=== PATIENT | male | born 1950 | race Caucasian/White ===

== ENCOUNTER 2018-02-01 04:09 | Emergency (ER) | payer OTHER ==
[2018-02-01] MEDS ORDERED: NS 1,000 ML IV ONE ×2 (04:27→04:32)
[2018-02-01] MEDS ORDERED: HYDROmorphONE/DILAUDID 1 MG/ML INJ ONE (04:30)
[2018-02-01] MEDS ORDERED: HYDROmorphONE/DILAUDID 2 MG/ML INJ IVP ONE (04:31)
[2018-02-01] MEDS ORDERED: KETOROLAC 15 MG/1 ML SDV ONE (04:31)
[2018-02-01] MEDS ORDERED: KETOROLAC 15 MG/1 ML SDV IVP ONE (04:31)
[2018-02-01] MEDS ORDERED: LIDOCAINE 1% 160 MG in NS 100 ML IV ONE (04:32)
--- NOTE | 2018-02-01 04:35 | EDPHY ---
H & P Stated Complaint: L FLANK PAIN Time Seen by Provider: 02/01/18 04:30 HPI/ROS: HPI The patient presents with left-sided flank pain which began several days ago and is intermittent though getting progressively worse. It is a an achy pain which radiates toward his buttocks and leg. He says he has a difficult time finding a comfortable position. He does not have any numbness or tingling of his leg. He does not have any weakness that he reports. He does not have any changes in his bowel or bladder function. He has no difficulties urinating. He has not been drinking very much fluid lately and family member here suspects he is dehydrated. He also has been doing a lot of gardening lately and questions if this may be causing his pain.. REVIEW OF SYSTEMS Constitutional: No fever, no chills. Eyes: No discharge. ENT: No sore throat. Cardiovascular: No chest pain, no palpitations. Respiratory: No cough, no shortness of breath. Gastrointestinal: No abdominal pain, no vomiting. Genitourinary: No hematuria. Musculoskeletal: Left flank pain Skin: No rashes. Neurological: No headache. PMHx: Hypertension Soc Hx: Smokes cigarettes FHx: PHYSICAL General Appearance: Alert, uncomfortable appearing Eyes: Pupils equal and round no pallor or injection ENT, Mouth: Mucous membranes moist Respiratory: There are no retractions, lungs are clear to auscultation Cardiovascular: Regular rate and rhythm Gastrointestinal: Abdomen is soft and non-tender, no masses, bowel sounds normal Back: There is no midline tenderness, there is left flank tenderness and also tenderness overlying the sciatic notch Neurological: A&O, moves all extremities Skin: Warm and dry, no rashes Musculoskeletal: Neck is supple non tender Extremities: symmetrical, 5/5 strength in lower extremities which is symmetric Psychiatric: Patient is oriented X 3, there is no agitation Source: Patient Exam Limitations: No limitations - Personal History Current Tetanus Diphtheria and Acellular Pertussis (TDAP): Yes - Medical/Surgical History Hx Asthma: No Hx Chronic Respiratory Disease: No Hx Diabetes: No Hx Cardiac Disease: Yes Hx Renal Disease: No Hx Cirrhosis: No Hx Alcoholism: No Hx HIV/AIDS: No Hx Splenectomy or Spleen Trauma: No Other PMH: HX: HTN, R KNEE INJURY, R ARM FX, METAL BEHIND R EYE - Social History Smoking Status: Heavy smoker Constitutional: Initial Vital Signs Temperature (C) 36.5 C 02/01/18 04:13 Heart Rate 90 02/01/18 04:13 Respiratory Rate 16 02/01/18 04:13 Blood Pressure 183/108 H 02/01/18 04:13 O2 Sat (%) 91 L 02/01/18 04:13 O2 Delivery Mode Room Air Allergies/Adverse Reactions: penicillin V potassium [From Pen-Vee K] Allergy (Verified 01/15/12 22:46) Sulfa (Sulfonamide Antibiotics) Allergy (Verified 01/15/12 22:46) Medical Decision Making - Diagnostics Imaging Results: CT abdomen pelvis without contrast reveals constipation, no kidney stones or hydronephrosis are present, there is 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 Napier of Radiology. Imaging: Discussed imaging studies w/ call worker Radiologist, I viewed and interpreted images myself Differential Diagnosis: 67-year-old male with hypertension presents from home with progressive intermittent left-sided flank pain. On exam, he has tenderness throughout his left flank with no midline tenderness. His strength is full in his lower extremities. As he does not have any urinary symptoms. Differential diagnosis includes ureterolithiasis, pyelonephritis, AAA, musculoskeletal pain. In the emergency department, patient was given IV fluids, medication for pain. Labs were checked and did reveal elevated BUN and creatinine to suggest pre renal azotemia. CT scan was obtained and did not demonstrate any sign of kidney stone. He does have significant constipation which could be a part of his pain. He also has a DJD of his lumbar spine which could be related to his pain. The patient felt better after receiving medication. He was given 2 L of fluid given his dehydration. I have advised [facility] as he may benefit from physical therapy. I have instructed him to use ibuprofen and Tylenol for the pain. - Data Points Laboratory Results: Laboratory Results 02/01/18 04:30 02/01/18 04:30 02/01/18 02/01/18 02/01/18 07:00 04:30 04:30 WBC 7.26 10^3/uL 10^3/uL (3.80-9.50) RBC 4.38 10^6/uL L 10^6/uL (4.40-6.38) Hgb 12.9 g/dL L g/dL (13.7-17.5) Hct 38.6 % L % (40.0-51.0) MCV 88.1 fL fL (81.5-99.8) MCH 29.5 pg pg (27.9-34.1) MCHC 33.4 g/dL g/dL (32.4-36.7) RDW 13.1 % % (11.5-15.2) Plt Count 183 10^3/uL 10^3/uL (150-400) MPV 11.0 fL fL (8.7-11.7) Neut % (Auto) 57.8 % % (39.3-74.2) Lymph % (Auto) 28.5 % % (15.0-45.0) [place] % (Auto) 9.0 % % (4.5-13.0) Eos % (Auto) 4.3 % % (0.6-7.6) Baso % (Auto) 0.3 % % (0.3-1.7) Nucleat RBC Rel Count 0.0 % % (0.0-0.2) Absolute Neuts (auto) 4.20 10^3/uL 10^3/uL (1.70-6.50) Absolute Lymphs (auto) 2.07 10^3/uL 10^3/uL (1.00-3.00) Absolute Monos (auto) 0.65 10^3/uL 10^3/uL (0.30-0.80) Absolute Eos (auto) 0.31 10^3/uL 10^3/uL (0.03-0.40) Absolute Basos (auto) 0.02 10^3/uL 10^3/uL (0.02-0.10) Absolute Nucleated RBC 0.00 10^3/uL 10^3/uL (0-0.01) Immature Gran % 0.1 % % (0.0-1.1) Immature Gran # 0.01 10^3/uL 10^3/uL (0.00-0.10) Sodium 137 mEq/L mEq/L (135-145) Potassium 4.8 mEq/L mEq/L (3.3-5.0) Chloride 105 mEq/L mEq/L (97-110) Carbon Dioxide 26 mEq/l mEq/l (22-31) Anion Gap 6 mEq/L L mEq/L (8-16) BUN 42 mg/dL H mg/dL (7-23) Creatinine 1.5 mg/dL H mg/dL (0.7-1.3) Estimated GFR 47 Glucose 99 mg/dL mg/dL (70-100) Calcium 9.2 mg/dL mg/dL (8.5-10.4) Urine Color YELLOW Urine Appearance CLEAR Urine pH 5.0 (5.0-7.5) Ur Specific [place] 1.018 (1.002-1.030) Urine Protein NEGATIVE (NEGATIVE) Urine Ketones NEGATIVE (NEGATIVE) Urine Blood NEGATIVE (NEGATIVE) Urine Nitrate NEGATIVE (NEGATIVE) Urine Bilirubin NEGATIVE (NEGATIVE) Urine Urobilinogen NEGATIVE EU EU (0.2-1.0) Ur Leukocyte Esterase NEGATIVE (NEGATIVE) Urine RBC NONE SEEN /hpf /hpf (0-3) Urine WBC 1-3 /hpf /hpf (0-3) Ur Epithelial Cells NONE SEEN /lpf /lpf (NONE-1+) Urine Mucus TRACE /lpf /lpf (NONE-1+) Urine Glucose NEGATIVE (NEGATIVE) Medications Given: Discontinued Medications Hydromorphone HCl (Dilaudid) 1 mg IVP EDNOW ONE Stop: 02/01/18 04:32 Last Admin: 02/01/18 04:34 Dose: 1 mg Sodium Chloride (Ns) 1,000 mls @ 3,000 mls/hr IV ONCE ONE Stop: 02/01/18 04:46 Last Admin: 02/01/18 04:35 Dose: 1,000 mls Lidocaine HCl 160 mg/ Sodium (Chloride) 116 mls @ 600 mls/hr IV EDNOW ONE Stop: 02/01/18 04:43 Last Admin: 02/01/18 04:44 Dose: 116 mls Sodium Chloride (Ns) 1,000 mls @ 3,000 mls/hr IV EDNOW ONE Stop: 02/01/18 04:51 Last Admin: 02/01/18 04:44 Dose: 1,000 mls Ketorolac Tromethamine (Toradol) 15 mg IVP ONCE ONE Stop: 02/01/18 04:32 Last Admin: 02/01/18 04:34 Dose: 15 mg Departure - Departure Disposition: Home, Routine, Self-Care Clinical Impression: Lumbar radiculopathy, acute, Dehydration Constipation Qualifiers: Constipation type: unspecified constipation type Qualified Code(s): K59.00 - Constipation, unspecified Condition: Good Instructions: Lumbar Radiculopathy (ED), Flank Pain (ED) Additional Instructions: I recommend that you take ibuprofen 400 mg with acetaminophen 650 mg every 6 hr as needed for pain. Please [facility] the next 1- 2 days for further care. Please make sure to drink plenty of fluids as your blood work today showed that your probably dehydrated. Referrals: NONE *PRIMARY CARE P,. [Primary Care Provider] - As per Instructions
[2018-02-01 04:39] LABS: PLATELET COUNT 183 10^3/uL (150-400)
[2018-02-01 09:52] VITALS: BP 123/71
== END 2018-02-01 10:03 | disposition home or self-care (01) ==
DX: K59.00 Constipation, unspecified (principal); M54.16 Radiculopathy, lumbar region; E86.0 Dehydration; I10 Essential (primary) hypertension; F17.210 Nicotine dependence, cigarettes, uncomplicated
CPT/HCPCS: 96365; J1170; J1885

== ENCOUNTER 2018-04-10 01:43 | Inpatient (IN) | payer OTHER ==
[2018-04-10] MEDS ORDERED: NS 1,000 ML IV ONE (03:06)
[2018-04-10] MEDS ORDERED: HYDROmorphONE/DILAUDID 2 MG/ML INJ IVP ONE (03:06)
[2018-04-10 04:04] LABS: PLATELET COUNT 190 10^3/uL (150-400)
[2018-04-10 04:24] LABS: CREATINE KINASE 145 IU/L (0-224)
[2018-04-10] MEDS ORDERED: IOPAMIDOL (ISOVUE-300) 100 ML BTL ONE (04:31)
--- NOTE | 2018-04-10 04:42 | EDPHY ---
H & P Stated Complaint: L leg/hip pain, "i couldnt even sit up" Time Seen by Provider: 04/10/18 02:53 HPI/ROS: HPI The patient presents with left hip pain which started yesterday and has been constant ever since. As the pain started slowly, is severe, has caused him to be bed-bound for the last day. He did not fall or injure his hip. He has no prior hip injuries. his pain is worse with any range of motion of his hip. He describes the pain as sharp. He has not had a fever. He has not had recent increased physical activity. He does use drugs and muscles heroin into his right arm though does not shoot into his leg. He denies any current back pain. REVIEW OF SYSTEMS Constitutional: No fever, no chills. Eyes: No discharge. ENT: No sore throat. Cardiovascular: No chest pain, no palpitations. Respiratory: No cough, no shortness of breath. Gastrointestinal: No abdominal pain, no vomiting. Genitourinary: No hematuria. Musculoskeletal: No back pain. Skin: No rashes. Neurological: No headache. PMHx: Hypertension, injection drug use Soc Hx: Lives in a house with multiple roommates, here with a friend PHYSICAL General Appearance: Alert, uncomfortable appearing Eyes: Pupils equal and round no pallor or injection ENT, Mouth: Mucous membranes moist Respiratory: There are no retractions, lungs are clear to auscultation Cardiovascular: Regular rate and rhythm Gastrointestinal: Abdomen is soft and non-tender, no masses, bowel sounds normal Neurological: A&O, moves all extremities Skin: Warm and dry, no rashes Musculoskeletal: Neck is supple non tender Extremities: Left hip is held in extension, any flexion causes severe pain, there is tenderness to the anterior hip joint, sensation is intact throughout leg Psychiatric: Patient is oriented X 3, there is no agitation Source: Patient Exam Limitations: No limitations - Personal History Current Tetanus Diphtheria and Acellular Pertussis (TDAP): No - Medical/Surgical History Hx Asthma: No Hx Chronic Respiratory Disease: No Hx Diabetes: No Hx Cardiac Disease: Yes Hx Renal Disease: No Hx Cirrhosis: No Hx Alcoholism: No Hx HIV/AIDS: No Hx Splenectomy or Spleen Trauma: No Other PMH: HX: HTN, R KNEE INJURY, R ARM FX, METAL BEHIND R EYE,[place], cocaine abuse - Social History Smoking Status: Heavy smoker Constitutional: Initial Vital Signs Temperature (C) 36.7 C 04/10/18 01:46 Heart Rate 85 04/10/18 01:46 Respiratory Rate 19 04/10/18 01:46 Blood Pressure 176/120 H 04/10/18 01:46 O2 Sat (%) 96 04/10/18 01:46 O2 Delivery Mode Room Air Allergies/Adverse Reactions: penicillin V potassium [From Pen-Vee K] Allergy (Verified 04/10/18 01:44) Sulfa (Sulfonamide Antibiotics) Allergy (Verified 04/10/18 01:44) Home Medications: Medication Instructions Recorded NK [No Known Home Meds] 03/08/18 Medical Decision Making - Diagnostics Imaging Results: X-ray left hip two view shows no fracture, no dislocation, interpreted by me, radiology interpretation pending CT scan pelvis with IV contrast demonstrates possible iliopsoas myositis, DJD of his hip joint with no large effusion, discussed Dr. Johnson of Radiology. Imaging: Discussed imaging studies w/ call box wirer Radiologist, I viewed and interpreted images myself Differential Diagnosis: This is a 67-year-old male with history of hypertension and injection drug use who presents with severe left hip pain which is atraumatic. He has limited range of motion secondary to pain though no signs of infection of his skin. Differential diagnosis includes occult fracture, deep space infection. Patient was given medication for pain. Labs were checked which did reveal a mild leukocytosis and elevated inflammatory markers. X-rays were unremarkable. Patient had ongoing pain thus decision was made to pursue CT scan which showed DJD and possible ileus psoas myositis. I re-evaluated the patient and he is unable to range his hip beyond about 30 secondary to pain. He is unable to bear weight on this. It is unclear if myositis could be causing all of his symptoms, however given that he cannot walk I do not feel he is safe for discharge home. I have consulted with Dr. Morelos of the hospitalist service who will admit the patient. He agrees that we should hold antibiotics given the diagnostic uncertainty at this time. - Data Points Laboratory Results: Laboratory Results 04/10/18 03:50 04/10/18 03:50 04/10/18 04/10/18 04/10/18 03:50 03:50 03:50 WBC 10.63 10^3/uL H 10^3/uL (3.80-9.50) RBC 4.68 10^6/uL 10^6/uL (4.40-6.38) Hgb 13.6 g/dL L g/dL (13.7-17.5) Hct 40.1 % % (40.0-51.0) MCV 85.7 fL fL (81.5-99.8) MCH 29.1 pg pg (27.9-34.1) MCHC 33.9 g/dL g/dL (32.4-36.7) RDW 13.3 % % (11.5-15.2) Plt Count 190 10^3/uL 10^3/uL (150-400) MPV 11.4 fL fL (8.7-11.7) Neut % (Auto) 76.3 % H % (39.3-74.2) Lymph % (Auto) 12.7 % L % (15.0-45.0) [place] % (Auto) 9.8 % % (4.5-13.0) Eos % (Auto) 0.8 % % (0.6-7.6) Baso % (Auto) 0.2 % L % (0.3-1.7) Nucleat RBC Rel Count 0.0 % % (0.0-0.2) Absolute Neuts (auto) 8.12 10^3/uL H 10^3/uL (1.70-6.50) Absolute Lymphs (auto) 1.35 10^3/uL 10^3/uL (1.00-3.00) Absolute Monos (auto) 1.04 10^3/uL H 10^3/uL (0.30-0.80) Absolute Eos (auto) 0.08 10^3/uL 10^3/uL (0.03-0.40) Absolute Basos (auto) 0.02 10^3/uL 10^3/uL (0.02-0.10) Absolute Nucleated RBC 0.00 10^3/uL 10^3/uL (0-0.01) Immature Gran % 0.2 % % (0.0-1.1) Immature Gran # 0.02 10^3/uL 10^3/uL (0.00-0.10) ESR 47 MM/HR H MM/HR (0-20) Sodium 136 mEq/L mEq/L (135-145) Potassium 4.0 mEq/L mEq/L (3.3-5.0) Chloride 99 mEq/L mEq/L (97-110) Carbon Dioxide 27 mEq/l mEq/l (22-31) Anion Gap 10 mEq/L mEq/L (8-16) BUN 30 mg/dL H mg/dL (7-23) Creatinine 0.9 mg/dL mg/dL (0.7-1.3) Estimated GFR > 60 Glucose 105 mg/dL H mg/dL (70-100) Calcium 9.1 mg/dL mg/dL (8.5-10.4) Total Bilirubin 0.9 mg/dL mg/dL (0.1-1.4) AST 31 IU/L IU/L (17-59) ALT 42 IU/L IU/L (21-72) Alkaline Phosphatase 139 IU/L H IU/L (38-126) Creatine Kinase 145 IU/L IU/L (0-224) C-Reactive Protein 31.0 mg/L H mg/L (<10.0) Total Protein 7.7 g/dL g/dL (6.3-8.2) Albumin 4.0 g/dL g/dL (3.5-5.0) Urine Color PALE YELLOW Urine Appearance CLEAR Urine pH 7.0 (5.0-7.5) Ur Specific [place] 1.012 (1.002-1.030) Urine Protein NEGATIVE (NEGATIVE) Urine Ketones NEGATIVE (NEGATIVE) Urine Blood NEGATIVE (NEGATIVE) Urine Nitrate NEGATIVE (NEGATIVE) Urine Bilirubin NEGATIVE (NEGATIVE) Urine Urobilinogen NEGATIVE EU EU (0.2-1.0) Ur Leukocyte Esterase NEGATIVE (NEGATIVE) Urine Glucose NEGATIVE (NEGATIVE) Urine Opiates Screen NON-NEGATIVE H (NEGATIVE) Urine Barbiturates NEGATIVE (NEGATIVE) Ur Phencyclidine Scrn NEGATIVE (NEGATIVE) Ur Amphetamine Screen NON-NEGATIVE H (NEGATIVE) U Benzodiazepines Scrn NEGATIVE (NEGATIVE) Urine Cocaine Screen NEGATIVE (NEGATIVE) U Marijuana (THC) Screen NON-NEGATIVE H (NEGATIVE) Medications Given: Discontinued Medications Hydromorphone HCl (Dilaudid) 1 mg IVP EDNOW ONE Stop: 04/10/18 03:07 Last Admin: 04/10/18 04:05 Dose: 1 mg Sodium Chloride (Ns) 1,000 mls @ 0 mls/hr IV EDNOW ONE; Wide Open PRN Reason: Protocol Stop: 04/10/18 03:07 Last Admin: 04/10/18 04:06 Dose: 1,000 mls Departure - Departure Disposition: [facility] Inpatient Acute Clinical Impression: Left hip pain, IVDU (intravenous drug user) HTN (hypertension) Qualifiers: Hypertension type: essential hypertension Qualified Code(s): I10 - Essential ( primary) hypertension Condition: Fair Referrals: NONE *PRIMARY CARE P,. [Primary Care Provider] - As per Instructions
[2018-04-10] MEDS ORDERED: ONDANSETRON DISINTEGRATING 4 MG TAB PO PRN (05:32)
[2018-04-10] MEDS ORDERED: ONDANSETRON 4 MG/2 ML VIAL IVP PRN (05:32)
--- NOTE | 2018-04-10 06:04 | PDGENHP ---
History and Physical - Chief Complaint L hip pain - History of Present Illness 67 yo M w/ HTN and polysubstance abuse presents with L hip pain. Patient tells me he noted acute onset, severe L hip pain yesterday while lying in bed. The pain has been so severe he has been able to get up or walk. When asked where the pain is he points near his L groin. The pain is improved by lying on his L side. He also has been experiencing R ankle pain, which started at the same time as the left hip pain. He has felt cold but denies clear fevers. He denies other localizing symptoms of infection. He has not had similar pain in the past. He denies hx of autoimmune disease. He abuses multiple drugs including heroin, which he injects intramuscularly, and smokes meth and speed. He says he has been smoking very strong speed lately that will knock him out for a day or two at the time. Case discussed with ED physician Dr. Brooks, records reviewed in EMR. History Information - Allergies/Home Medication List Allergies/Adverse Reactions: penicillin V potassium [From Pen-Vee K] Allergy (Verified 04/10/18 01:44) Sulfa (Sulfonamide Antibiotics) Allergy (Verified 04/10/18 01:44) Home Medications: NK [No Known Home Meds] 03/08/18 [Last Taken Unknown] I have personally reviewed and updated: family history, medical history - Past Medical History hypertension - Surgical History Additional surgical history: Knee surgery - Family History Additional family history: Asked, denies - Social History Smoking Status: Heavy smoker Review of Systems Review of Systems: ROS: 10pt was reviewed & negative except for what was stated in HPI & below Physical Exam Physical Exam: Temp Pulse Resp BP Pulse Ox 36.7 C 85 19 176/120 H 96 04/10/18 01:46 04/10/18 01:46 04/10/18 01:46 04/10/18 01:46 04/10/18 01:46 Constitutional: uncomfortable, unkempt Eyes: PERRL, anicteric sclera Ears, Nose, Mouth, Throat: moist mucous membranes, no oral mucosal ulcers Cardiovascular: regular rate and rhythym, systolic murmur Respiratory: no respiratory distress, clear to auscultation Gastrointestinal: normoactive bowel sounds, soft, non-tender abdomen Skin: warm, erythema (Lateral R ankle with swelling and warmth) Musculoskeletal: pain with ROM (L hip), muscular tenderness (L hip) Neurologic: AAOx3, CN II-XII Intact Psychiatric: interacting appropriately, not anxious Lab Data & Imaging Review 04/10/18 03:50 04/10/18 03:50 WBC 10.63 10^3/uL (3.80-9.50) H 04/10/18 03:50 RBC 4.68 10^6/uL (4.40-6.38) 04/10/18 03:50 Hgb 13.6 g/dL (13.7-17.5) L 04/10/18 03:50 Hct 40.1 % (40.0-51.0) 04/10/18 03:50 MCV 85.7 fL (81.5-99.8) 04/10/18 03:50 MCH 29.1 pg (27.9-34.1) 04/10/18 03:50 MCHC 33.9 g/dL (32.4-36.7) 04/10/18 03:50 RDW 13.3 % (11.5-15.2) 04/10/18 03:50 Plt Count 190 10^3/uL (150-400) 04/10/18 03:50 MPV 11.4 fL (8.7-11.7) 04/10/18 03:50 Neut % (Auto) 76.3 % (39.3-74.2) H 04/10/18 03:50 Lymph % (Auto) 12.7 % (15.0-45.0) L 04/10/18 03:50 [place] % (Auto) 9.8 % (4.5-13.0) 04/10/18 03:50 Eos % (Auto) 0.8 % (0.6-7.6) 04/10/18 03:50 Baso % (Auto) 0.2 % (0.3-1.7) L 04/10/18 03:50 Nucleat RBC Rel Count 0.0 % (0.0-0.2) 04/10/18 03:50 Absolute Neuts (auto) 8.12 10^3/uL (1.70-6.50) H 04/10/18 03:50 Absolute Lymphs (auto) 1.35 10^3/uL (1.00-3.00) 04/10/18 03:50 Absolute Monos (auto) 1.04 10^3/uL (0.30-0.80) H 04/10/18 03:50 Absolute Eos (auto) 0.08 10^3/uL (0.03-0.40) 04/10/18 03:50 Absolute Basos (auto) 0.02 10^3/uL (0.02-0.10) 04/10/18 03:50 Absolute Nucleated RBC 0.00 10^3/uL (0-0.01) 04/10/18 03:50 Immature Gran % 0.2 % (0.0-1.1) 04/10/18 03:50 Immature Gran # 0.02 10^3/uL (0.00-0.10) 04/10/18 03:50 ESR 47 MM/HR (0-20) H 04/10/18 03:50 Sodium 136 mEq/L (135-145) 04/10/18 03:50 Potassium 4.0 mEq/L (3.3-5.0) 04/10/18 03:50 Chloride 99 mEq/L (97-110) 04/10/18 03:50 Carbon Dioxide 27 mEq/l (22-31) 04/10/18 03:50 Anion Gap 10 mEq/L (8-16) 04/10/18 03:50 BUN 30 mg/dL (7-23) H 04/10/18 03:50 Creatinine 0.9 mg/dL (0.7-1.3) 04/10/18 03:50 Estimated GFR > 60 04/10/18 03:50 Glucose 105 mg/dL (70-100) H 04/10/18 03:50 Calcium 9.1 mg/dL (8.5-10.4) 04/10/18 03:50 Total Bilirubin 0.9 mg/dL (0.1-1.4) 04/10/18 03:50 AST 31 IU/L (17-59) 04/10/18 03:50 ALT 42 IU/L (21-72) 04/10/18 03:50 Alkaline Phosphatase 139 IU/L (38-126) H 04/10/18 03:50 Creatine Kinase 145 IU/L (0-224) 04/10/18 03:50 C-Reactive Protein 31.0 mg/L (<10.0) H 04/10/18 03:50 Total Protein 7.7 g/dL (6.3-8.2) 04/10/18 03:50 Albumin 4.0 g/dL (3.5-5.0) 04/10/18 03:50 Urine Color PALE YELLOW 04/10/18 03:50 Urine Appearance CLEAR 04/10/18 03:50 Urine pH 7.0 (5.0-7.5) 04/10/18 03:50 Ur Specific [place] 1.012 (1.002-1.030) 04/10/18 03:50 Urine Protein NEGATIVE (NEGATIVE) 04/10/18 03:50 Urine Ketones NEGATIVE (NEGATIVE) 04/10/18 03:50 Urine Blood NEGATIVE (NEGATIVE) 04/10/18 03:50 Urine Nitrate NEGATIVE (NEGATIVE) 04/10/18 03:50 Urine Bilirubin NEGATIVE (NEGATIVE) 04/10/18 03:50 Urine Urobilinogen NEGATIVE EU (0.2-1.0) 04/10/18 03:50 Ur Leukocyte Esterase NEGATIVE (NEGATIVE) 04/10/18 03:50 Urine Glucose NEGATIVE (NEGATIVE) 04/10/18 03:50 Urine Opiates Screen NON-NEGATIVE (NEGATIVE) H 04/10/18 03:50 Urine Barbiturates NEGATIVE (NEGATIVE) 04/10/18 03:50 Ur Phencyclidine Scrn NEGATIVE (NEGATIVE) 04/10/18 03:50 Ur Amphetamine Screen NON-NEGATIVE (NEGATIVE) H 04/10/18 03:50 U Benzodiazepines Scrn NEGATIVE (NEGATIVE) 04/10/18 03:50 Urine Cocaine Screen NEGATIVE (NEGATIVE) 04/10/18 03:50 U Marijuana (THC) Screen NON-NEGATIVE (NEGATIVE) H 04/10/18 03:50 Imaging Review: Pelvis CT Prelim: degen change, no effusion, iliopsoas enlarged on left but no def abcess, ? myositis Assessment & Plan Assessment: 67 yo M w/ HTN and polysubstance abuse presents with L hip pain and R ankle swelling. Plan: 1. L hip pain - Acute onset on day prior to admission while at rest; denies trauma or injury, although the speed/meth he has been smoking lately will make him "out of it" for a day or two so this is still possible. Differential is broad currently including vascular, infectious, and autoimmune considerations. CT prelim read revealed iliopsoas enlargement suggestive of possible myositis. Inflammatory markers are only mildly elevated and CK is normal, so this seems less likely. Noting he has R ankle pain/swelling that started at the same time, embolic phenomena is possible noting hx of IVDU. - MRI ordered for further evaluation of L hip - TTE and blood cultures to rule out endocarditis - Will observe off antibiotics for now, low threshold to start broad coverage 2. R ankle pain/swelling - Unclear etiology, patient noticed this at the same time as the L hip pain. - XR ordered - TTE as above 3. Polysubstance abuse - Patient admits to use of heroin, speed, meth, and possibly other substances. 4. HTN - Needs med reconciliation, normotensive currently. Diet - Regular Code - Full Ppx - LMWH Dispo - Admit under observation status
[2018-04-10] MEDS: oxyCODONE IR 5 MG TAB PO PRN ×4 (09:48→22:39)
[2018-04-10] MEDS: ENOXAPARIN 40 MG/0.4 ML SYR SC SCH (09:49)
--- NOTE | 2018-04-10 13:13 | ECHO ---
[email or web address] [address] [address] Main: [phone] Fax: Transthoracic Echocardiogram Name: KIA NIEVES MR#: [id number] Study Date: 04/10/2018 Study Time: 09:26 AM Date of : 1950 Age: 67 year(s) Height: 175.3 cm (69 in.) Weight: 79.38 kg (175 lb.) BSA: 1.95 m2 Gender: Male Examination: Echo Indication: IV Drug Use, R/O Vegetation Image Quality: Contrast: Requested by: Darren Fischer BP: 143 mmHg/88 mmHg Heart Rate: Rhythm: Normal sinus rhythm with ectopy Indication: IV Drug Use, R/O Vegetation Procedure Staff Budget Record Clerk: Donell Valle RDCS Reading Physician: Raymond Crabtree MD Requesting Provider: Conclusions: Normal study Measurements: Chambers Valvular Assessment AV/MV Valvular Assessment TV/PV Normal Normal Normal Name Value Range Name Value Range Name Value Range Ao Francine (MM): 3.7 cm (2.2 cm-3.7 AV Vmax: 1.37 m/s (1 m/s-1.7 TR Vmax: 2.21 mm/s ( - ) cm) m/s) TR PGmax: 20 mmHg ( - ) IVSd (2D): 0.8 cm (0.6 cm-1.1 AV maxP mmHg ( - ) syst. PAP: 25 mmHg ( - ) cm) LVOT Vmax: 0.85 m/s (0.7 m/s-1.1 PV Vmax: 1.05 m/s (0.6 m/s-0.9 LVDd (2D): 5.0 cm (4.2 cm-5.9 m/s) m/s) cm) AR (PHT): 916 ms ( - ) PV PGmax: 4 mmHg ( - ) LVDs (2D): 3.3 cm (2.1 cm-4 MV E Vmax: 0.60 m/s ( - ) cm) MV A Vmax: 0.83 m/s ( - ) LVPWd (2D): 0.9 cm (0.6 cm-1 MV E/A: 0.72 ( - ) cm) LVEF (2D): 64 (>=54 %) Continued Measurements: Chambers Valvular Assessment AV/MV Valvular Assessment TV/PV Name Value Name Value Name Value LADs Lon.1 cm MV E' Septal: 0.07 m/s CVP (est.): 5 mmHg LA Area: 19.3 cm2 MV E/E' Septal: 8.50 AR Vmax: 3.64 cm/s Findings: Left Ventricle: Normal size left ventricle. No LV hypertrophy. Normal global systolic LV function. EF is 64 %. No Patient: KIA NIEVES Study Date: 04/10/2018 Page 1 of 2 09:26 AM regional wall motion abnormality. Diastolic dysfunction is present. . Right Ventricle: Normal size right ventricle. Normal RV function. Left Atrium: The left atrium is normal in size. Right Atrium: The right atrium is normal in size. Mitral Valve: The mitral valve is normal in appearance and function. There is no significant mitral valve regurgitation. Aortic Valve: The aortic valve is tri-leaflet. Mild aortic valve regurgitation is present. Tricuspid Valve: The tricuspid valve is normal in appearance and function. Trivial to mild tricuspid valve regurgitation. The pulmonary artery pressure is normal. Pulmonic Valve: The pulmonic valve is normal in appearance and function. Aorta: The aorta is normal. Pericardium: No pericardial effusion. (No Signature Object) Patient: KIA NIEVES Study Date: 04/10/2018 Page 2 of 2 09:26 AM [id number]
--- NOTE | 2018-04-10 14:36 | ASMTCMCOM ---
CM Note CM Note Notes: Pt presents to hospital w/L hip pain. He admits to current polysubstance abuse (Meth,Heroin,Speed). DC needs unclear, CM w/f. DC Plan: TBD Date Signed: 04/10/2018 02:35 PM Electronically Signed By:Leeanne Boyd RN
--- NOTE | 2018-04-10 15:23 | HOSPPROG ---
Hospitalist Progress Note Assessment/Plan: HOSPITALIST EVENING ROUNDS NOTE ON ADMISSION DAY Pt states He has been getting by with very low doses of narcotic so far here no change in pain, unable to move L hip due to pain No fevers thru day, vitals stable Exam: awake, very KAIBAB skin warm dry, no distress markedly tender in ileopsoas below inguinal ligament and also there is groin tenderness just above the ligament, though no definite abd tenderness. Severe pain with attempt at active hip flexion on L, much anticipation of pain with passive flexion but I can flex to 90; pain with passive hip abduction at 60 degr ESR 47 CRP 31 No growth in cultures yet today but < 12 hrs I have reviewed CT images, has some enlargement of L ileopsoas but no acute skeletol issues Cultures of blood pending MRI has not been done yet - attempted but pt too anxious With pain and tenderness at ileopsoas and pain with attempted use of it, along with high ESR and CRP, I am highly suspicious about possible myositis there. Lack of fever does not rule out infection. No fx on CT, doubt avasc necrosis but could consider that. DIAGNOSES: * acute ileopsoas pain, tenderness with high ESR and CRP, CT suggesting possible myositis * ongoing Injected heroin and meth * potential for withdrawal from these * ankle pain: xray with old healed fxs and arthritis, unremarkable exam * risk of HIV * Hx of HTN * current tobacco abuse PLANS: * will begin empiric iv abx * follow cultures * retry mri with ativan, pain med * HIV test ordered * nicotine patch * clonidine and muscle relaxors ordered w potential for withdrawal; continue current order for oxycodone for pain which is doing well so far - may not last * prn orders for ativan, antidiarrheal, > 35 mins bedside and care coordination in addition to the time spent today by Dr Fagan on admission activities Objective: Vital Signs Temp Pulse Resp BP Pulse Ox 36.9 C 69 16 153/101 H 89 L 04/10/18 11:49 04/10/18 11:49 04/10/18 11:49 04/10/18 11:49 04/10/18 11:49 04/09/18 04/10/18 04/11/18 06:59 06:59 06:59 Output Total 700 Balance -700 ICD10 Worksheet Patient Problems: Problems Problem Status Onset HTN (hypertension) Acute IVDU (intravenous drug user) Acute Left hip pain Acute
[2018-04-10] MEDS: CYCLOBENZAPRINE 10 MG TAB PO SCH ×2 (15:47→21:06)
[2018-04-10] MEDS ORDERED: DIPHENOXYLATE/ATROPINE LOMOTIL 1 TAB PO PRN (16:07)
[2018-04-10] MEDS: NICOTINE 21 MG/24 HR PATCH TD SCH (17:51)
[2018-04-10] MEDS ORDERED: NS 1,000 ML IV SCH (18:15)
[2018-04-10] MEDS: VANCOMYCIN HCL/NORMAL SALINE 250 ML IV SCH (18:30)
[2018-04-10] MEDS: LORazepam 1 MG TAB PO PRN (21:06)
[2018-04-11] MEDS: LORazepam 1 MG TAB PO PRN ×5 (01:30→23:37)
[2018-04-11] MEDS: oxyCODONE IR 5 MG TAB PO PRN ×4 (02:57→23:37)
[2018-04-11] MEDS: VANCOMYCIN HCL/NORMAL SALINE 250 ML IV SCH (06:09)
[2018-04-11] MEDS: CYCLOBENZAPRINE 10 MG TAB PO SCH ×3 (08:55→21:10)
[2018-04-11] MEDS: NICOTINE 21 MG/24 HR PATCH TD SCH (08:57)
[2018-04-11] MEDS: ENOXAPARIN 40 MG/0.4 ML SYR SC SCH (08:58)
--- NOTE | 2018-04-11 10:28 | HOSPPROG ---
Hospitalist Progress Note Assessment/Plan: 67-year-old with severe left hip pain. CT shows 67-year-old IV drug user is admitted with left hip pain. Initial CT scan does show some iliopsoas swelling, no significant white count or fever and blood cultures are negative. Discussed with Orthopedics # left hip pain with CT remarkable for possible myositis. * Discontinue antibiotics and monitor since blood cultures negative * MRI with sedation * Appreciate Orthopedics input * needs additional midnight stay for monitoring and possible abscess in patient with IVDU at high risk. # ongoing IV drug use. Patient typically injects into his upper extremities and not his lower extremities. Will watch for withdrawal * Follow-up HIV test # hypertension, monitor and treat if needed # ankle pain with negative x-ray. Subjective: Patient new to me and chart reviewed. Complains of left hip pain slightly better this morning. Also complains of some right ankle pain. Very difficult to arouse this morning Objective: Vital Signs Temp Pulse Resp BP Pulse Ox 36.9 C 70 16 149/90 H 99 04/11/18 08:00 04/11/18 08:00 04/11/18 08:00 04/11/18 09:03 04/11/18 08:00 04/10/18 04/11/18 04/12/18 05:59 05:59 05:59 Intake Total 350 Output Total 1475 700 Balance -1125 -700 - Physical Exam Constitutional: chronically ill appearing, uncomfortable Eyes: PERRL Ears, Nose, Mouth, Throat: moist mucous membranes Cardiovascular: regular rate and rhythym Respiratory: no respiratory distress, clear to auscultation Gastrointestinal: normoactive bowel sounds, soft, non-tender abdomen Genitourinary: no bladder fullness Skin: warm Musculoskeletal: normal joint ROM (Left hip), no joint effusions, pain with ROM (Pain with active flexion against resistance of his left leg. Tenderness over his left groin area) Neurologic: AAOx3 Psychiatric: interacting appropriately ICD10 Worksheet Patient Problems: Problems Problem Status Onset Left hip pain Acute IVDU (intravenous drug user) Acute HTN (hypertension) Acute
--- NOTE | 2018-04-11 11:12 | GCON ---
DATE OF CONSULTATION: 04/11/2018 CHIEF COMPLAINT: Left hip and groin pain. HISTORY OF PRESENT ILLNESS: This is a 67-year-old male who is an IV drug user and polysubstance abus er. He noted onset of left hip pain about 3 days ago. It became more severe on the next day and par ticularly the next day. It was so severe he came to the hospital. He said he really had difficulty walking and bearing weight on this. He also had been experiencing some right ankle pain that started about the same time. At this point, in talking to him today, both have improved. He denies falls, trauma, or any other things. He says he last used IV drugs about 4 days ago. He has been [facility] and worked up for this. PAST MEDICAL HISTORY: Hypertension. SURGICAL HISTORY: Knee surgery. FAMILY HISTORY: Denies any. SOCIAL HISTORY: Heavy smoker, polysubstance abuser, IV drug user. HOME MEDICATIONS: Not known. ALLERGIES: Penicillin, sulfa drugs, potassium. REVIEW OF SYSTEMS: 10-point review of systems negative other than above. PHYSICAL EXAMINATION: GENERAL: He is oriented. He is mostly alert. He is communicative. Does not appear in any distress. VITAL SIGNS: Stable. He is afebrile. HEENT: His eyes are equal and reac tive. His mouth shows moist mucous membranes. NECK: Supple. CARDIOVASCULAR: Regular rate and rhy thm. RESPIRATORY: Good inspiratory effort. GI: Soft. Bowel sounds. SKIN: Intact. MUSCULOSKELE NEGAR: Arms: He moves well and no areas of tenderness, trauma, or other concerns. He has good 5/5 st rength and sensation in the left lower extremity. He points to pain right in his groin. I can range his hip well with internal external rotation and flexion with minimal pain. He relates minimal palp ation anteriorly. No tenderness to palpation laterally. Attempted hip flexion shows 3/5 hip flexion strength with significant pain at attempted hip flexion. He has good 5/5 strength and no pain with hip abduction, hip adduction, hip extension. He has good strength laterally. No gross tenderness. On the right side, he has some swelling about his right ankle. He is able to move this, however. X-rays x-ray of the right ankle showed old healing fractures, no acute fracture, and some soft tissue swelling. X-rays and CT of his hip concern for myositis in his iliopsoas. No bony abnormality seen and no evidence of any fracture. PLAN: Regarding the left hip, I do not think he has a fracture bony injury. I think his iliopsoas m uscles is inflamed possibly with a myositis. It is also possible he could have an abscess in this ar ea. I think an MRI would be more diagnostic for this. An MRI has been ordered. He did not tolerate the first one, and one will be done with contrast with him with some sedation. The right ankle pain and swelling, will see if this resolves over time. I do not see any acute injury to this. I will f ollow him along in the hospital, but I do not recommend any surgical intervention at this point. /[id number]/MODL
[2018-04-11] MEDS: HYDROmorphONE/DILAUDID 1 MG/ML INJ IVP PRN (14:20)
--- NOTE | 2018-04-11 14:26 | PDMN ---
Medical Necessity Medical necessity: MCG: GRG Musculoskeletal disease - pt with hip pain- poss. iliopsoas myositis req further monitoring and IV abx tx. - pt is IV drug abuse- ongoing , further monitoring of W/D needed. anticipate > 2 MN status changed to INPT 04/10/18 @ 18:06
[2018-04-11] MEDS: traZODone 100 MG TAB PO SCH (21:10)
[2018-04-12] MEDS: ACETAMINOPHEN 325 MG TAB PO PRN (01:29)
[2018-04-12] MEDS: oxyCODONE IR 5 MG TAB PO PRN ×4 (02:49→21:28)
[2018-04-12] MEDS: LORazepam 1 MG TAB PO PRN ×2 (04:20→12:08)
[2018-04-12 05:22] LABS: PLATELET COUNT 172 10^3/uL (150-400)
--- NOTE | 2018-04-12 08:43 | SOAPPROG ---
WHIT Progress Note Assessment/Plan: Assessment: L iliopsoas myosisitis R ankle swelling Plan: His L hip and illiopsoas seem to be improving. He can do a straight leg raise and has improved hip flexion strength R ankle minimally swollen and seems to be improving He has been unable to tolerate an MRI. This would still be helpful diagnostically 04/12/18 08:40 Subjective: less pain in left hip and R ankle Objective: Vital Signs Temp Pulse Resp BP Pulse Ox 36.8 C 74 16 146/95 H 94 04/12/18 07:22 04/12/18 07:22 04/12/18 07:22 04/12/18 07:22 04/12/18 07:22 Laboratory Results 04/12/18 05:05 04/12/18 05:05 04/11/18 04/12/18 04/13/18 05:59 05:59 05:59 Intake Total 500 Output Total 275 2600 Balance -275 -2100 Left hip improved flexion strength 5-/5 able to do straigth leg raise R ankle minimal swelling non tender today ICD10 Worksheet Patient Problems: Problems Problem Status Onset HTN (hypertension) Acute IVDU (intravenous drug user) Acute Left hip pain Acute
[2018-04-12] MEDS: PRAZOSIN HCL 1 MG CAP PO SCH (09:13)
[2018-04-12] MEDS: ENOXAPARIN 40 MG/0.4 ML SYR SC SCH (09:13)
[2018-04-12] MEDS: CYCLOBENZAPRINE 10 MG TAB PO SCH ×3 (09:14→21:28)
[2018-04-12] MEDS: NICOTINE 21 MG/24 HR PATCH TD SCH (09:16)
--- NOTE | 2018-04-12 12:32 | HOSPPROG ---
Hospitalist Progress Note Assessment/Plan: 67-year-old IV drug user is admitted with left hip pain. Initial CT scan does show some iliopsoas swelling, no significant white count or fever and blood cultures are negative. Discussed with Orthopedics. Continues to be lethargic all of the time. # left hip pain with CT remarkable for possible myositis. * Discontinue antibiotics and monitor since blood cultures negative * MRI with sedation * Appreciate Orthopedics input * needs additional midnight stay for monitoring and possible abscess in patient with IVDU at high risk. # ongoing IV drug use. Patient typically injects into his upper extremities and not his lower extremities. Will watch for withdrawal * Follow-up HIV test # hypertension, monitor and treat if needed # ankle pain with negative x-ray. Subjective: complains of my cold stethescope. pain in left groin to palpation, per ortho, strength better. Objective: Vital Signs Temp Pulse Resp BP Pulse Ox 37.1 C 82 16 123/82 H 93 04/12/18 10:54 04/12/18 10:54 04/12/18 10:54 04/12/18 10:54 04/12/18 10:54 Laboratory Results 04/12/18 05:05 04/12/18 05:05 04/11/18 04/12/18 04/13/18 05:59 05:59 05:59 Intake Total 500 Output Total 275 2600 Balance -275 -2100 - Physical Exam Constitutional: chronically ill appearing, other (arousable but won't open eyes) Cardiovascular: regular rate and rhythym Respiratory: no respiratory distress Gastrointestinal: normoactive bowel sounds Musculoskeletal: other (tenderness left groin) ICD10 Worksheet Patient Problems: Problems Problem Status Onset Left hip pain Acute IVDU (intravenous drug user) Acute HTN (hypertension) Acute
[2018-04-12] MEDS ORDERED: chlordiazePOXIDE 25 MG CAP PO ONE (15:15)
[2018-04-12] MEDS ORDERED: FLUMAZENIL 0.5 MG/5 ML MDV IVP PRN (15:42)
--- NOTE | 2018-04-12 16:12 | ASMTCMCOM ---
CM Note CM Note Notes: Chart reviewed. Will have repeat MRI tomorrow with sedation. CM to follow. Will need need resources prior to discharge. CM to follow for needs. Plan: TBD Date Signed: 04/12/2018 04:12 PM Electronically Signed By:Vicki Shipley RN
[2018-04-12] MEDS: THIAMINE HCL 500 MG in NS 100 ML IV SCH (16:55)
[2018-04-12] MEDS: LORazepam 2 MG/ML INJ IVP PRN (19:51)
[2018-04-12] MEDS: traZODone 100 MG TAB PO SCH (21:28)
[2018-04-12] MEDS: chlordiazePOXIDE 25 MG CAP PO SCH (21:28)
[2018-04-13] MEDS: LORazepam 2 MG/ML INJ IVP PRN (00:15)
[2018-04-13] MEDS ORDERED: chlordiazePOXIDE 25 MG CAP PO SCH (09:24)
--- NOTE | 2018-04-13 09:24 | HOSPPROG ---
Hospitalist Progress Note Assessment/Plan: 67-year-old IV drug user is admitted with left hip pain. Initial CT scan does show some iliopsoas swelling, no significant white count or fever and blood cultures are negative. Discussed with Orthopedics. Continues to be lethargic all of the time. # left hip pain with CT remarkable for possible myositis. * Discontinue antibiotics and monitor since blood cultures negative * MRI with sedation to be done today. * Appreciate Orthopedics input * needs additional midnight stay for monitoring and possible abscess in patient with IVDU at high risk. * continue to follow CBC # ongoing IV drug use. Patient typically injects into his upper extremities and not his lower extremities. Will watch for withdrawal # Agitation, responds to librium. Pt denies ETOH use, but active IVDU. * Continue librium , will decrease dose # hypertension, monitor and treat if needed # ankle pain with negative x-ray. Subjective: arousable, poor eye contact, pt not very interested in his care. Objective: Vital Signs Temp Pulse Resp BP Pulse Ox 37.0 C 78 14 135/84 H 94 04/13/18 08:00 04/13/18 08:00 04/13/18 08:00 04/13/18 08:00 04/13/18 08:00 Laboratory Results 04/12/18 05:05 04/12/18 05:05 04/12/18 04/13/18 04/14/18 05:59 05:59 05:59 Intake Total 500 100 Output Total 2600 Balance -2100 100 - Physical Exam Constitutional: no apparent distress, unkempt Eyes: PERRL Ears, Nose, Mouth, Throat: moist mucous membranes Cardiovascular: regular rate and rhythym Respiratory: no respiratory distress, clear to auscultation Gastrointestinal: soft, non-tender abdomen Genitourinary: No elizondo in urethra Skin: normal color Musculoskeletal: muscular tenderness (Left groin) Neurologic: other (Unable to assess MS due to patient flat affect and disinterest in care.) Psychiatric: flat affect, agitated (in afternoons) ICD10 Worksheet Patient Problems: Problems Problem Status Onset HTN (hypertension) Acute IVDU (intravenous drug user) Acute Left hip pain Acute
[2018-04-13] MEDS: PRAZOSIN HCL 1 MG CAP PO SCH (10:18)
[2018-04-13] MEDS: CYCLOBENZAPRINE 10 MG TAB PO SCH ×3 (10:18→22:46)
[2018-04-13] MEDS: ENOXAPARIN 40 MG/0.4 ML SYR SC SCH (10:19)
[2018-04-13] MEDS: THIAMINE HCL 500 MG in NS 100 ML IV SCH (10:19)
[2018-04-13] MEDS: FOLIC ACID 1 MG TAB PO SCH (10:19)
[2018-04-13] MEDS: chlordiazePOXIDE 25 MG CAP PO SCH ×4 (10:29→22:45)
[2018-04-13] MEDS: NICOTINE 21 MG/24 HR PATCH TD SCH (11:14)
[2018-04-13 13:17] LABS: PLATELET COUNT 180 10^3/uL (150-400)
--- NOTE | 2018-04-13 16:14 | PDANEPAE ---
ANE History of Present Illness pt with hip pain, here for MRI ANE Past Medical History - Cardiovascular History Hx Hypertension: No Hx Arrhythmias: No Hx Chest Pain: No Hx Coronary Artery / Peripheral Vascular Disease: No Hx CHF / Valvular Disease: No - Pulmonary History Hx Oxygen in Use at Home: No Hx Sleep Apnea: No - Endocrine History Hx Diabetes: No - Chronic Pain History Chronic Pain: No ANE Review of Systems Review of Systems: - Exercise capacity Exercise capacity: >=4 METS ANE Patient History - Allergies Allergies/Adverse Reactions: penicillin V potassium [From Pen-Vee K] Allergy (Verified 04/10/18 01:44) Sulfa (Sulfonamide Antibiotics) Allergy (Verified 04/10/18 01:44) - Home Medications Home Medications: Prazosin HCl [Minipress 1mg (*)] 1 mg PO DAILY 04/10/18 [Last Taken Unknown] amLODIPine BESYLATE [Norvasc 10 mg (*)] 10 mg PO DAILY 04/10/18 [Last Taken Unknown] traZODone [traZODONE 100MG (*)] 100 mg PO HS 04/10/18 [Last Taken Unknown] - NPO status NPO Status: no food or drink >8 hours - Anes Hx Anes Hx: no prior problems - Smoking Hx Smoking Status: Heavy smoker - Alcohol Use Alcohol Use: None - Family Anes Hx Family Anes Hx: none ANE Labs/Vital Signs - Labs Result Diagrams: 04/13/18 12:54 04/12/18 05:05 - Vital Signs Blood Pressure: 139/82 Heart Rate: 74 Respiratory Rate: 20 O2 Sat (%): 94 Height: 175.26 cm Weight: 79.379 kg ANE Physical Exam - Airway Neck exam: FROM Mallampati Score: Class 2 Mouth exam: poor dentition, dentures - Pulmonary Pulmonary: no respiratory distress, clear to auscultation - Cardiovascular Cardiovascular: regular rate and rhythym, no murmur, rub, or gallop - ASA Status ASA Status: III ANE Anesthesia Plan Anesthesia Plan: GA with mask Total IV Anesthesia: Yes
[2018-04-13] MEDS ORDERED: PROPOFOL/EMULSION 500 MG/50 ML BOTTLE IV ONE ×3 (16:21→17:01)
[2018-04-13] MEDS ORDERED: GADOBUTROL 10 ML VIAL IVP ONE (17:37)
[2018-04-13] MEDS ORDERED: ACETAMINOPHEN 500 MG TAB PO PRN (18:13)
[2018-04-13] MEDS ORDERED: ONDANSETRON 4 MG/2 ML VIAL IVP PRN (18:13)
[2018-04-13] MEDS ORDERED: NALOXONE HCL 0.4 MG/ML INJ IVP PRN (18:13)
--- NOTE | 2018-04-13 18:15 | POSTANESTH ---
Post Anesthetic Evaluation Cardiovascular Status: Normal, Stable, Similar to Pre-Op Cond Respiratory Status: Normal, Stable, Similar to Pre-op Cond. Level of Consciousness/Mental Status: Can Participate in Eval, Alert and Oriented Pain Control: Adequate, Prn Tx Ordered Nausea/Vomiting Control: Adequate, Prn Tx Ordered Complications Possibly Related to Anesthesia: None Noted
[2018-04-13] MEDS: traZODone 100 MG TAB PO SCH (22:45)
[2018-04-14] MEDS: PRAZOSIN HCL 1 MG CAP PO SCH (08:26)
[2018-04-14] MEDS: CYCLOBENZAPRINE 10 MG TAB PO SCH ×3 (08:26→21:08)
[2018-04-14] MEDS: FOLIC ACID 1 MG TAB PO SCH (08:26)
[2018-04-14] MEDS: THIAMINE HCL 500 MG in NS 100 ML IV SCH (08:26)
[2018-04-14] MEDS: chlordiazePOXIDE 25 MG CAP PO SCH (08:26)
[2018-04-14] MEDS: NICOTINE 21 MG/24 HR PATCH TD SCH (08:26)
[2018-04-14] MEDS: ENOXAPARIN 40 MG/0.4 ML SYR SC SCH (08:27)
[2018-04-14] MEDS: ACETAMINOPHEN 325 MG TAB PO PRN (08:36)
[2018-04-14 08:49] LABS: PLATELET COUNT 226 10^3/uL (150-400)
[2018-04-14] MEDS ORDERED: VANCOMYCIN HCL/NORMAL SALINE 250 ML IV ONE (11:29)
[2018-04-14] MEDS ORDERED: NS 1,000 ML IV ONE (11:29)
[2018-04-14] MEDS ORDERED: NS 1,000 ML IV SCH (11:30)
--- NOTE | 2018-04-14 11:58 | HOSPPROG ---
Hospitalist Progress Note Assessment/Plan: 67-year-old IV drug user is admitted with left hip pain. Initial CT scan does show some iliopsoas swelling, no significant white count or fever and blood cultures are negative. MRI showed myositis and possibly small abscess in the iliopsoas. However today with no antibiotic treatment in a few days his symptoms are actually significantly improved and he is much more alert than he has been over the past 2 days however his friends visited him prior to my visit and the nurse and I have a high suspicion that they gave him drugs thru his IV since his IV blew after their visit and his hypoxia and low BP that started after their visit resolved with narcan. Security searched his room for drug and did not find any. # left hip pain with CT remarkable for possible myositis. * MRI shows possibly small abscess. 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 # ongoing IV drug use. Patient typically injects into his upper extremities and not his lower extremities. # delirium: This has cleared over the last 24 hr he was on scheduled Librium yesterday and much improved today so will discontinue his sedatives and use p.r.n. Only. Monitor his mental status I suspect he may have had some withdrawal contributing although he denies any alcohol use possibly withdrawal to some of his other polysubstance abuse. He cleared significantly after his friends visited ? IVDU today. # hypotension this morning, will give IV fluids, typically he is hypertensive I wonder if this is related to his sedatives that were given yesterday and anesthesia done for the MRI yesterday. I doubt sepsis given his minimal elevated white count, improving mental status and the fact he has been afebrile. RN called and stated that prior to drop in BP and iv infiltrating, the patient had 2 friends come into his room and suspects that they gave him something thru his IV will give a dose of narcan now. # ankle pain with negative x-ray. Disposition: await ID recs, doubt we can aspirated abscess due to size and will need to treat with antibiotics. Subjective: Patient more alert today and appropriate. Decreased pain and tenderness in his left groin able to put a little bit a weight and lift his legs. Objective: Vital Signs Temp Pulse Resp BP Pulse Ox 36.9 C 84 14 84/55 L 88 L 04/14/18 11:18 04/14/18 11:18 04/14/18 07:15 04/14/18 11:18 04/14/18 11:18 Laboratory Results 04/14/18 08:00 04/14/18 08:00 04/13/18 04/14/18 04/15/18 05:59 05:59 05:59 Intake Total 100 1475 Output Total 600 250 Balance 100 875 -250 - Physical Exam Constitutional: not in pain, unkempt Eyes: PERRL Ears, Nose, Mouth, Throat: moist mucous membranes Cardiovascular: regular rate and rhythym Respiratory: no respiratory distress, clear to auscultation Gastrointestinal: normoactive bowel sounds, soft, non-tender abdomen Skin: warm, normal color Musculoskeletal: muscular tenderness (Left iliopsoas are low much less tender than yesterday), No joint tenderness Neurologic: other (Alert more appropriate and answering questions well) Psychiatric: interacting appropriately ICD10 Worksheet Patient Problems: Problems Problem Status Onset Left hip pain Acute IVDU (intravenous drug user) Acute HTN (hypertension) Acute
[2018-04-14] MEDS ORDERED: NALOXONE HCL 0.4 MG/ML INJ ONE (12:43)
[2018-04-14] MEDS ORDERED: NALOXONE HCL 0.4 MG/ML INJ IVP ONE (12:43)
[2018-04-14 14:48] LABS: HIV TYPE 1 AND 2 NEGATIVE (NEGATIVE)
--- NOTE | 2018-04-14 15:29 | ASMTCMCOM ---
CM Note CM Note Notes: Spoke with patient's nurse, Shawn. Patient had visitors today and when they left patient respiratory status and BP became unstable. After consultation with Dr. Car, it was determined there was a high probability the patient's visitors put drugs in his IV line. Patient was given Narcan and respiratory status and BP stabilized. Patient is not allowed any visitors for the remainder of his stay here in the hospital. See nurse's notes dated 04-14-2018 by Shawn for a more detailed account. CM was going to give resources today but patient is sedated by whatever was placed in his IV line. CM to follow up tomorrow. Date Signed: 04/14/2018 03:28 PM Electronically Signed By:Lashaun Allen LCSW
--- NOTE | 2018-04-14 20:46 | GCON ---
INFECTIOUS DISEASE CONSULTATION. DATE OF CONSULTATION: 04/14/2018 REFERRING PHYSICIAN: Jaelyn Car MD REASON FOR CONSULTATION: Myositis of left iliopsoas muscle. HISTORY OF PRESENT ILLNESS: The patient is a 67-year-old male with a past medical history of injecti on drug use, who I am asked to see in consultation for left-sided iliopsoas myositis with concern for infectious etiology. The patient was admitted to the hospital on 04/10/2018, with complaint of left hip pain. The patient had developed acute onset of left hip pain which was so severe he could not g et out of bed or walk. The patient's pain was localized to left inguinal region. The patient also n oted concomitant right ankle pain. He did not complain of any fever or chills. He notes last inject ion drug use was the day prior to hospital admission. He primarily injects into his upper extremity muscles. The patient notes that his left hip pain has slowly improved, but has persistent pain in hi s right popliteal fossa and over the left ankle as well as the right 5th finger. Evaluation has incl uded an MRI of the left hip, which showed edema in the iliopsoas muscle with a 7 x 2 mm fluid collect ion posteriorly; there also appears to be fluid within the iliopsoas bursa and a small joint effusion . No intramuscular abscess was identified. X-ray of the right ankle showed degenerative changes. B lood cultures were obtained at the time of presentation, which have showed no growth. The patient rausch s had a leukocytosis present since time of hospital admission. He has not had any demonstrable fever since hospital admission. He has been observed off antibiotics until earlier today at which point h e was initiated on vancomycin based on hypotension and increasing white blood cell count. The patien t does not note significant abdominal pain, but notes diarrhea x1 today with foul odor. Given the ab ove findings, I am now asked to assist in his ongoing management. PAST MEDICAL HISTORY: MRSA hand infection in 2010, injection drug use, hypertension. PAST SURGICAL HISTORY: Right knee surgery. CURRENT MEDICATIONS: Vancomycin 1 g IV q.12 hours, Librium 25 mg as needed, Catapres 0.1 mg p.o. twi ce daily, Flexeril 10 mg p.o. three times daily, Lomotil as needed for diarrhea, Lovenox 40 mg subcut aneous daily, folate 1 mg p.o. daily, NicoDerm CQ 21 mg patch daily, prazosin 1 mg p.o. daily, vitami n B1 100 mg p.o. daily, trazodone 100 mg p.o. at bedtime. ALLERGIES: Penicillin and sulfonamide with unclear reactions as child. SOCIAL HISTORY: Patient smokes a few cigarettes per day. Denies alcohol use. Uses injection heroin and smokes methamphetamine. The patient notes last sexual activity was 8 months ago with his girlfr sohail who is currently in intermediate. FAMILY HISTORY: The patient is unable to provide family history today. REVIEW OF SYSTEMS: Outside that noted in the HPI, the remainder of 10-system review is unremarkable. PHYSICAL EXAMINATION: VITAL SIGNS: Temperature 37.3, heart rate 73, respiratory rate 18, blood pres sure 134/79, oxygen saturation 91% on room air. GENERAL: Patient is chronically ill appearing with distress when he moves. HEENT: There is no scleral icterus, conjunctival injection, or conjunctival petechiae. Oropharynx shows moist mucous membranes. Patient is edentulous. There is no nasal disc harge. There is no tenderness over the sinuses. NECK: Supple without palpable lymphadenopathy or t hyromegaly. CHEST: Clear to auscultation bilaterally without adventitious sounds. The respiratory effort is normal. CARDIOVASCULAR: Regular rate and rhythm with a 2/6 systolic murmur heard at the l eft and right upper sternal borders. No gallops or rubs noted. ABDOMEN: Soft, nontender, nondisten ded. There is no palpable organomegaly. Bowel sounds are present. MUSCULOSKELETAL: There is minim al pain with rotation of the left hip. There is no pain over the left hip joint. There is pain in t he right popliteal fossa without erythema. There is pain with mild edema over the dorsal aspect of t he left foot with slight erythema being present. There is significant tenderness over the PIP joint of the right index finger without overlying erythema. SKIN: Multiple tattoos present. There are no stigmata of endocarditis. There is onycholysis of several nails. NEUROLOGIC: Patient is alert and interacts appropriately with examiner. Cranial nerves 2 through 12 are grossly intact. Sensation i s grossly intact. Muscle tone and bulk are normal. LYMPHATICS: No cervical or supraclavicular node s. Bilateral shotty inguinal nodes present. LABORATORY DATA: White blood cell count 12.6, hematocrit 40.0, platelets 226, neutrophils 78%. Seru m creatinine is 1.1. Urine drug screen shows non-negativity for opiates, amphetamines, and THC. HIV antibody is negative. Urinalysis is negative. Blood cultures x2 on 04/10/2018 no growth, blood cul tures x2, 04/14/2018 pending. Imaging as outlined above with MRI being reviewed and interpreted by me with Radiology today. Echocardiogram shows mild aortic valve regurgitation and trivial to mild tricuspid valve regurgitatio n. IMPRESSION: 1. Left-sided iliopsoas inflammatory changes most compatible with myositis: Given the presence of t hese findings in the setting of injection drug use, this is concerning for bacterial seeding with Sta phylococcus aureus being most likely. He is at significant risk for methicillin resistant Staphyloco ccus aureus. Less likely, this would be noninfectious in etiology based on clinical presentation. T here is no dominant fluid collection that would be amenable to percutaneous aspiration for further di agnosis. 2. Polyarthralgia: See above discussion as Staphylococcus aureus could also present in this fashion . Disseminated in gonococcal would be also of consideration. 3. Injection drug use: Will need screening for hepatitis B and C. RECOMMENDATIONS: 1. Agree with empiric vancomycin 1 g IV q.12 hours to see if this alleviates symptomatology. 2. Follow up repeat blood cultures as available. 3. Urine for GC and chlamydia. 4. Hepatitis B and C serologies. 5. Follow clinical response over time with antibiotic therapy and further modification of treatment based on clinical course. Thank you for this consultation. We will continue to follow the patient with you. /[id number]/MODL
[2018-04-14] MEDS: traZODone 100 MG TAB PO SCH (21:07)
[2018-04-14] MEDS: LORazepam 1 MG TAB PO PRN (21:07)
[2018-04-14] MEDS: VANCOMYCIN HCL/NORMAL SALINE 250 ML IV SCH (23:43)
[2018-04-15] MEDS: chlordiazePOXIDE 25 MG CAP PO PRN (00:32)
[2018-04-15] MEDS: oxyCODONE IR 5 MG TAB PO PRN ×6 (01:50→22:31)
[2018-04-15] MEDS: LORazepam 1 MG TAB PO PRN ×3 (02:17→22:29)
[2018-04-15] MEDS: FOLIC ACID 1 MG TAB PO SCH (09:00)
[2018-04-15] MEDS: THIAMINE HCL 100 MG TAB PO SCH (09:25)
[2018-04-15] MEDS: NICOTINE 21 MG/24 HR PATCH TD SCH (09:26)
[2018-04-15] MEDS: CYCLOBENZAPRINE 10 MG TAB PO SCH ×3 (09:26→20:57)
[2018-04-15] MEDS: PRAZOSIN HCL 1 MG CAP PO SCH (09:26)
[2018-04-15] MEDS: ENOXAPARIN 40 MG/0.4 ML SYR SC SCH (09:26)
--- NOTE | 2018-04-15 09:50 | HOSPPROG ---
Hospitalist Progress Note Assessment/Plan: 67-year-old IV drug user is admitted with left hip pain. Initial CT scan does show some iliopsoas swelling, no significant white count or fever and blood cultures are negative. MRI showed myositis and possibly small abscess in the iliopsoas. # left hip pain with CT remarkable for possible myositis. * MRI shows possibly small abscess. * ID is following, for now treating with IV Vancomycin # Right Ankle pain. Negative X-Ray. If continues with no improvement, may need to get an MRI # ongoing IV drug use. Patient typically injects into his upper extremities and not his lower extremities. # delirium: resolved # hypotension, resolved Plan: -stop IVF -monitor BP -Still with no fever. His left hip pain is now fully resolved. Etiology remains unclear. -His main c/o is right ankle pain. His exam is difficult as he says all of his ankle and lower extremity are painful. He does appear to have point tenderness in the lateral aspect. ROM is limited. May need an MRI R ankle pending clinical course -Repeat CRP. Subjective: right ankle pain. denies left hip or thigh pain Objective: Vital Signs Temp Pulse Resp BP Pulse Ox 36.6 C 74 19 168/104 H 91 L 04/15/18 07:21 04/15/18 07:21 04/15/18 07:21 04/15/18 09:25 04/15/18 07:21 Laboratory Results 04/14/18 08:00 04/14/18 12:10 04/14/18 04/15/18 04/16/18 05:59 05:59 05:59 Intake Total 1475 250 Output Total 600 450 Balance 875 -200 - Physical Exam Constitutional: no apparent distress Eyes: PERRL Ears, Nose, Mouth, Throat: moist mucous membranes, hearing normal Cardiovascular: regular rate and rhythym, No edema Respiratory: no respiratory distress, no rales or rhonchi Gastrointestinal: normoactive bowel sounds, soft, non-tender abdomen Skin: warm Neurologic: AAOx3 Psychiatric: interacting appropriately, not anxious, not encephalopathic Lymph, Heme, Immunologic: No petechiae ICD10 Worksheet Patient Problems: Problems Problem Status Onset HTN (hypertension) Acute IVDU (intravenous drug user) Acute Left hip pain Acute
[2018-04-15 11:34] LABS: GC AMPLIFICATION GENPROBE NEGATIVE (NEGATIVE)
[2018-04-15] MEDS: VANCOMYCIN HCL/NORMAL SALINE 250 ML IV SCH ×2 (12:00→23:37)
[2018-04-15 13:12] LABS: HEPATITIS B CORE AB TOTAL REACTIVE (NEGATIVE); HEPATITIS B SURFACE ANTIGEN NEGATIVE (NEGATIVE); HEPATITIS C ANTIBODY TOTAL REACTIVE (NEGATIVE)
[2018-04-15 14:35] LABS: HEPATITIS B CORE AB IGM NEGATIVE (NEGATIVE)
--- NOTE | 2018-04-15 19:15 | PCMIDPN ---
Assessment/Plan: Assessment/Plan: * Left ileo psoas myositis: Most likely this is infectious in etiology given active injection drug use with Staphylococcus aureus being most likely pathogen. Blood cultures have been negative however. Marked elevation in CRP present. Also has right 5th digit tenderness and now recurrent right ankle pain with resolution of left ankle pain. Will obtain uric acid level. Will proceed with CT scan of right ankle without contrast to assess for effusion which if present would need to be tapped. Difficult to proceed with MRI as he require general anesthesia for left hip MRI. Urine GC and Chlamydia studies have been negative. Continue empiric vancomycin and monitor clinical course over time. Vancomycin level will be obtained prior to his next dose this p.m.. 04/15/18 19:12 04/15/18 19:14 Subjective: Patient complains of right ankle pain. Denies left hip pain. Objective: Vital Signs Temp Pulse Resp BP Pulse Ox 36.9 C 80 15 141/80 H 93 04/15/18 11:35 04/15/18 15:49 04/15/18 15:49 04/15/18 15:49 04/15/18 15:49 Laboratory Results 04/14/18 08:00 04/15/18 15:25 04/14/18 04/15/18 04/16/18 05:59 05:59 05:59 Intake Total 1475 250 700 Output Total 304 406 8196 Balance 875 -200 -2000 ESR 47 MM/HR (0-20) H 04/10/18 03:50 C-Reactive Protein 214.7 mg/L (<10.0) H 04/15/18 05:05 Vancomycin # 2 Blood cultures x2 04/10/2018 no growth Blood cultures x2 04/14/2018 pending - Physical Exam General Appearance: non-toxic, other (Somnolent but arousable) EENT: No scleral icterus, No thrush, No conjunctival petechiae Respiratory: lungs clear, No respiratory distress Cardiac/Chest: regular rate, rhythm, No systolic murmur Extremities: inflammation (Left hip without irritability or pain with rotation; right ankle exquisitely tender to palpation and rotation without overlying erythema or warmth; right 5th finger painful over PIP joint; left ankle pain resolved) Abdomen: non-tender, No distended Skin: No rash, No embolic lesions ICD10 Worksheet Patient Problems: Problems Problem Status Onset HTN (hypertension) Acute IVDU (intravenous drug user) Acute Left hip pain Acute
[2018-04-15] MEDS: traZODone 100 MG TAB PO SCH (20:57)
[2018-04-16] MEDS: oxyCODONE IR 5 MG TAB PO PRN ×5 (01:36→20:02)
[2018-04-16] MEDS: NICOTINE 21 MG/24 HR PATCH TD SCH (08:04)
[2018-04-16] MEDS: THIAMINE HCL 100 MG TAB PO SCH (08:06)
[2018-04-16] MEDS: ENOXAPARIN 40 MG/0.4 ML SYR SC SCH (08:06)
[2018-04-16] MEDS: PRAZOSIN HCL 1 MG CAP PO SCH (08:07)
[2018-04-16] MEDS: FOLIC ACID 1 MG TAB PO SCH (08:07)
[2018-04-16] MEDS: CYCLOBENZAPRINE 10 MG TAB PO SCH ×2 (08:07→15:31)
[2018-04-16] MEDS: chlordiazePOXIDE 25 MG CAP PO PRN (08:07)
--- NOTE | 2018-04-16 10:10 | PCMIDPN ---
Assessment/Plan: 1. Left ileo psoas myositis with developing abscess: Patient continues to have severe pain, and today is really unable to flex or internally or externally rotate his hip. Will add cefepime for gram-negative coverage given that he is at risk for this as an intravenous drug user. Continue vancomycin, but increase to 1.25 g IV q.12 hours and recheck trough. Will also obtain blood culture for fungi, as he is at risk for Magalys in the setting of intravenous drug use as well. 2. Right ankle and right knee pain: Reviewed CT scan with Dr. Johnson. No drainable focus or effusion. Continue antibiotic therapy as outlined above. GC chlamydia screening of the urine is negative. Uric acid normal, although this does not exclude gout. Etiology unclear at this point in time. This is fairly sudden onset, so doubt related to underlying hepatitis-C or hepatitis-B. Check syphilis IgG for completeness. This would be an unusual manifestation. Of note, the CT scan went up to the knee but did not include the knee. If he continues to have severe discomfort here with a possible ballotable effusion, will scan this area as well. 3. Hepatitis-C antibody positive, hepatitis-B core antibody positive: Check hepatitis C quantitative RNA and hepatitis B quantitative DNA. Also check hepatitis a total antibody to ensure immunity given probable underlying hepatitis-C. Patient is HIV negative. Over 35 min spent with this patient today. 04/16/18 10:12 Subjective: Patient continues to have severe pain in his right ankle and right knee. The pain in his right 5th digit has improved. He states although the pain in his left hip is better compared with admission, it is still very severe and he is unable to really move his hip today. Objective: Vancomycin 1 g IV q.12 hours day 1 T-max 37.3 degrees Vital Signs Temp Pulse Resp BP Pulse Ox 37.3 C 79 16 155/104 H 97 04/16/18 08:00 04/16/18 08:00 04/16/18 08:00 04/16/18 08:00 04/16/18 08:00 Laboratory Results 04/14/18 08:00 04/15/18 15:25 04/15/18 04/16/18 04/17/18 05:59 05:59 05:59 Intake Total 250 700 Output Total 450 4000 Balance -200 -3300 ESR 47 MM/HR (0-20) H 04/10/18 03:50 C-Reactive Protein 214.7 mg/L (<10.0) H 04/15/18 05:05 Blood cultures, 2 sets have been negative TTE negative Laboratory Tests 04/14/18 04/15/18 04/15/18 12:22 02:10 15:25 Uric Acid 4.5 Vancomycin Trough Hep B Core Total Ab REACTIVE H Hep B Core IgM Ab NEGATIVE Hepatitis C Antibody REACTIVE H HIV 1&2 Antibody NEGATIVE 04/15/18 23:16 Uric Acid Vancomycin Trough 7.7 Hep B Core Total Ab Hep B Core IgM Ab Hepatitis C Antibody HIV 1&2 Antibody - Physical Exam General Appearance: other (Disheveled, laying on left side, no apparent distress ) EENT: pharynx normal, No thrush Respiratory: lungs clear Cardiac/Chest: regular rate, rhythm, No systolic murmur Extremities: other (The patient's right knee is not swollen, although he may have a small ballotable effusion in this area medially. The right ankle is without obvious abnormality although it is exquisitely painful with flexion and extension. The patient's right 5th digit is without obvious abnormality. He is able to flex and extend his finger today. Patient's left hip is without obvious abnormality on physical exam. He does have exquisite pain when he flexes and extends his hip and it with internal and external rotation the patient is screaming.) Abdomen: non-tender, soft Skin: other (Multiple tattoos), No rash, No embolic lesions ICD10 Worksheet Patient Problems: Problems Problem Status Onset HTN (hypertension) Acute IVDU (intravenous drug user) Acute Left hip pain Acute
[2018-04-16] MEDS ORDERED: ceFAZolin 2 GM/DEXTROSE 100 ML IV SCH (10:30)
[2018-04-16] MEDS: ACETAMINOPHEN 325 MG TAB PO PRN ×2 (10:35→15:30)
[2018-04-16] MEDS: CEFEPIME HCL 2 GM in NS 100 ML IV SCH ×2 (10:35→23:07)
[2018-04-16] MEDS: VANCOMYCIN 1.25 GM in NS 250 ML IV SCH ×2 (10:36→23:48)
[2018-04-16] MEDS: LORazepam 1 MG TAB PO PRN (11:17)
[2018-04-16] MEDS ORDERED: PIPERACILLIN/TAZO 3.375 GM/DEX 50 ML IV SCH (12:00)
--- NOTE | 2018-04-16 13:12 | HOSPPROG ---
Hospitalist Progress Note Assessment/Plan: 67-year-old IV drug user is admitted with left hip pain. Initial CT scan does show some iliopsoas swelling, no significant white count or fever and blood cultures are negative. MRI showed myositis and possibly small abscess in the iliopsoas. # left hip pain with CT remarkable for possible myositis. * MRI shows possibly small abscess. * ID is following * Cont IV Vancomycin. Cefepime added today * elevated CRP and pc noted # Right Ankle pain. Negative X-Ray. -CT right ankle with no e/o infection -unable to obtain MRI as previously required sedation. # ongoing IV drug use. Patient typically injects into his upper extremities and not his lower extremities. # delirium: resolved # hypotension, resolved con inpatient Subjective: no overnight events. sleeping Objective: Vital Signs Temp Pulse Resp BP Pulse Ox 36.9 C 79 16 126/81 H 93 04/16/18 11:24 04/16/18 11:24 04/16/18 11:24 04/16/18 11:24 04/16/18 11:24 Laboratory Results 04/14/18 08:00 04/15/18 15:25 04/15/18 04/16/18 04/17/18 05:59 05:59 05:59 Intake Total 250 700 Output Total 450 4000 Balance -200 -3300 - Physical Exam Constitutional: no apparent distress Eyes: PERRL Ears, Nose, Mouth, Throat: moist mucous membranes, hearing normal Cardiovascular: regular rate and rhythym Respiratory: no respiratory distress, no rales or rhonchi, clear to auscultation Gastrointestinal: normoactive bowel sounds, No rebound, No distension Skin: warm Lymph, Heme, Immunologic: No petechiae ICD10 Worksheet Patient Problems: Problems Problem Status Onset HTN (hypertension) Acute IVDU (intravenous drug user) Acute Left hip pain Acute
[2018-04-16 15:51] LABS: HEPATITIS A ANTIBODY TOTAL POSITIVE (NEGATIVE)
[2018-04-16] MEDS: traZODone 100 MG TAB PO SCH (20:03)
[2018-04-16 22:52] LABS: HEPATITIS A ANTIBODY IGM (BCH) NEGATIVE (NEGATIVE)
[2018-04-17] MEDS: CYCLOBENZAPRINE 10 MG TAB PO SCH ×4 (02:05→20:41)
[2018-04-17] MEDS: oxyCODONE IR 5 MG TAB PO PRN ×5 (02:10→20:41)
[2018-04-17] MEDS: HYDROmorphONE/DILAUDID 1 MG/ML INJ IVP PRN ×2 (03:06→17:28)
[2018-04-17] MEDS: ACETAMINOPHEN 325 MG TAB PO PRN (06:17)
[2018-04-17] MEDS: LORazepam 1 MG TAB PO PRN ×2 (06:17→22:05)
--- NOTE | 2018-04-17 09:16 | PCMIDPN ---
Assessment/Plan: 1. Left ileopsoas myositis/ileacus abscess: He seems to be better today! Can flex his hip with minimal discomfort. Continue vancomycin and cefepime as is. Blood cultures remain negative. Will likely need a course of IV therapy (? 2 weeks) followed by perhaps 2 weeks of oral therapy. [facility] given service in the [place]. Repeat vancomycin trough tomorrow. 2. Right ankle and right knee pain: Right ankle pain is gone. Knee pain persists, but is better overall. 3. Syphilis antibody positive: Patient has no recollection of ever having syphilis in the past. Await confirmatory testing. 4. Miscellaneous: HIV negative, he is immune to hepatitis a and B. It appears he likely has natural immunity from hepatitis-B. 5. Hepatitis-C antibody positive: Hepatitis-C quantitative RNA pending. Over 25 min spent with this patient today. Subjective: In good spirits. Tells me"I feel better today."Much more mobile. Says right ankle pain is gone. Has minimal discomfort in his right knee that is ameliorated with an ice pack. No diarrhea. Able to flex his hip with ease. Objective: Vital Signs Vancomycin 1.25 g IV q.12 hours day 2 Cefepime 2 g IV q.12 hours day 1 T-max 37.3 degrees Temp Pulse Resp BP Pulse Ox 36.8 C 73 12 155/97 H 94 04/17/18 07:07 04/17/18 07:07 04/17/18 07:07 04/17/18 07:07 04/17/18 07:07 Laboratory Results 04/14/18 08:00 04/15/18 15:25 04/16/18 04/17/18 04/18/18 05:59 05:59 05:59 Intake Total 700 Output Total 4000 1275 200 Balance -3300 -1275 -200 ESR 47 MM/HR (0-20) H 04/10/18 03:50 C-Reactive Protein 214.7 mg/L (<10.0) H 04/15/18 05:05 Laboratory Tests 04/15/18 04/16/18 04/16/18 02:10 05:05 10:01 Syphilis IgG/IgM Ab REACTIVE H RPR Confirmation T.pallidum Ab (TP-PA) Hepatitis A Ab Total POSITIVE Hep Bs Antibody Positive HCV RNA (PCR) IUs/ml Pending 04/16/18 10:01 Syphilis IgG/IgM Ab RPR Confirmation Pending T.pallidum Ab (TP-PA) Pending Hepatitis A Ab Total Hep Bs Antibody HCV RNA (PCR) IUs/ml - Physical Exam General Appearance: alert, no apparent distress EENT: pharynx normal, No thrush Respiratory: lungs clear Cardiac/Chest: regular rate, rhythm Extremities: other (Right knee with no obvious swelling. Some tenderness anteromedially with no ballotable effusion today. No skin changes. Right ankle looks fine. He is able to flex and extend without difficulty. Patient gets left hip also looks fine. He is able to flex it and internally and externally rotated with ease today.) Skin: other (Multiple tattoos), No rash, No embolic lesions Neuro/Psych: oriented x 3 ICD10 Worksheet Patient Problems: Problems Problem Status Onset HTN (hypertension) Acute IVDU (intravenous drug user) Acute Left hip pain Acute
[2018-04-17] MEDS: ENOXAPARIN 40 MG/0.4 ML SYR SC SCH (10:27)
[2018-04-17] MEDS: FOLIC ACID 1 MG TAB PO SCH (10:27)
[2018-04-17] MEDS: THIAMINE HCL 100 MG TAB PO SCH (10:28)
[2018-04-17] MEDS: PRAZOSIN HCL 1 MG CAP PO SCH (10:28)
[2018-04-17] MEDS: NICOTINE 21 MG/24 HR PATCH TD SCH (10:33)
[2018-04-17] MEDS: CEFEPIME HCL 2 GM in NS 100 ML IV SCH ×2 (10:52→22:05)
--- NOTE | 2018-04-17 12:01 | HOSPPROG ---
Hospitalist Progress Note Assessment/Plan: 67-year-old IV drug user is admitted with left hip pain. Initial CT scan does show some iliopsoas swelling, no significant white count or fever and blood cultures are negative. MRI showed myositis and possibly small abscess in the iliopsoas. # left hip pain with CT remarkable for possible myositis. * MRI shows possibly small abscess. * ID is following * Cont IV Vancomycin. Cefepime added today * elevated CRP and pc noted # Right Ankle pain. Negative X-Ray. -CT right ankle with no e/o infection -unable to obtain MRI as previously required sedation. -appears to be improving # ongoing IV drug use. Patient typically injects into his upper extremities and not his lower extremities. #possible Syphilis: confirmation test needed # delirium: resolved # hypotension, resolved con inpatient The patient will need IV abx for 2 weeks and then transitioned 2 weeks of Abx orally. The patient is requesting discharge with home IV abx. Given his IV drug use, this may be risky. Subjective: no cp or sob. feeling better. no left thigh pain. right ankle pain is better as well. Objective: Vital Signs Temp Pulse Resp BP Pulse Ox 36.8 C 73 12 138/92 H 94 04/17/18 07:07 04/17/18 07:07 04/17/18 07:07 04/17/18 10:26 04/17/18 07:07 Laboratory Results 04/15/18 15:25 04/16/18 04/17/18 04/18/18 05:59 05:59 05:59 Intake Total 700 250 Output Total 4000 1275 500 Balance -3300 -1275 -250 - Physical Exam Constitutional: no apparent distress Eyes: PERRL Ears, Nose, Mouth, Throat: moist mucous membranes, hearing normal Cardiovascular: regular rate and rhythym, No edema Respiratory: no respiratory distress, no rales or rhonchi, clear to auscultation Gastrointestinal: normoactive bowel sounds, soft, non-tender abdomen Skin: warm Musculoskeletal: generalized weakness Neurologic: AAOx3 Psychiatric: interacting appropriately Lymph, Heme, Immunologic: No petechiae ICD10 Worksheet Patient Problems: Problems Problem Status Onset HTN (hypertension) Acute IVDU (intravenous drug user) Acute Left hip pain Acute
[2018-04-17] MEDS: VANCOMYCIN 1.25 GM in NS 250 ML IV SCH ×2 (13:23→22:54)
--- NOTE | 2018-04-17 16:26 | ASMTCMCOM ---
CM Note CM Note Notes: Spoke with pt, he lives in a mobile home in [place]. He still needs to work with therapies to assess needs, pt motivated to start working with them. Pt still on IV abx, CM w/f for needs. Pt has [employer] ins, several snfs can accept his insurance if he qualifies for shelter. DC Plan: TBD Date Signed: 04/17/2018 04:26 PM Electronically Signed By:Leeanne Boyd RN
[2018-04-17] MEDS: traZODone 100 MG TAB PO SCH (20:41)
[2018-04-18] MEDS: oxyCODONE IR 5 MG TAB PO PRN ×3 (06:14→17:12)
[2018-04-18] MEDS: chlordiazePOXIDE 25 MG CAP PO PRN (06:14)
[2018-04-18] MEDS: ACETAMINOPHEN 325 MG TAB PO PRN (07:42)
[2018-04-18] MEDS: LORazepam 1 MG TAB PO PRN ×3 (07:43→18:01)
[2018-04-18] MEDS: NICOTINE 21 MG/24 HR PATCH TD SCH (09:17)
[2018-04-18 09:20] LABS: PLATELET COUNT 293 10^3/uL (150-400)
[2018-04-18] MEDS: PRAZOSIN HCL 1 MG CAP PO SCH (09:21)
[2018-04-18] MEDS: CYCLOBENZAPRINE 10 MG TAB PO SCH ×2 (09:21→17:14)
[2018-04-18] MEDS: FOLIC ACID 1 MG TAB PO SCH (09:21)
[2018-04-18] MEDS: THIAMINE HCL 100 MG TAB PO SCH (09:21)
[2018-04-18] MEDS: ENOXAPARIN 40 MG/0.4 ML SYR SC SCH (09:31)
[2018-04-18] MEDS: CEFEPIME HCL 2 GM in NS 100 ML IV SCH (09:31)
--- NOTE | 2018-04-18 09:59 | PCMIDPN ---
Assessment/Plan: 1. Left ileopsoas myositis/ileacus abscess: Continue vancomycin at present dose (trough okay) and cefepime. Again, given history of intravenous drug use, patient may need to be transferred to the [place] for completion of antibiotics. (? 2 weeks of IV followed by 2 weeks of oral therapy). Blood cultures remain negative. 2. Migratory polyarthralgias: Right knee and right ankle pain are gone, but now has exquisite left knee pain, without abnormality on physical exam. Hold off on imaging for now, consider trial of Indocin. GC testing has been negative, uric acid level normal. 3. Syphilis antibody positive: Patient has no recollection of ever having syphilis in the past. Await confirmatory testing. 4. Miscellaneous: HIV negative, he is immune to hepatitis a and B. It appears he likely has natural immunity from hepatitis-B. 5. Hepatitis-C antibody positive: Hepatitis-C quantitative RNA pending. Subjective: Told me that he had a bad night secondary to new development of left knee pain. Tells me that his left hip pain is markedly better, and his right knee and right ankle pain are gone. No fevers or shaking chills. Objective: Vancomycin 1.25 g IV q.12 hours day 3 Cefepime 2 g IV q.12 hours day 2 T-max 37 degrees for Vital Signs Temp Pulse Resp BP Pulse Ox 36.6 C 75 18 111/72 91 L 04/18/18 04:00 04/18/18 04:00 04/18/18 04:00 04/18/18 09:21 04/18/18 04:00 Laboratory Results 04/18/18 08:54 04/17/18 04/18/18 04/19/18 05:59 05:59 05:59 Intake Total 1030 Output Total 1275 2450 500 Balance -1275 -1420 -500 ESR 47 MM/HR (0-20) H 04/10/18 03:50 C-Reactive Protein 214.7 mg/L (<10.0) H 04/15/18 05:05 No new microbiology, blood cultures remain negative - Physical Exam General Appearance: other (Looks tired. No apparent distress) EENT: No thrush Respiratory: lungs clear Cardiac/Chest: regular rate, rhythm, No systolic murmur Extremities: other (Patient no longer has pain in his right knee and right ankle. Exquisite tenderness to palpation medial aspect of the knee, without obvious abnormality or effusion. No overlying skin changes or swelling.) Abdomen: non-tender, soft Skin: No rash, No embolic lesions ICD10 Worksheet Patient Problems: Problems Problem Status Onset HTN (hypertension) Acute IVDU (intravenous drug user) Acute Left hip pain Acute
[2018-04-18] MEDS: VANCOMYCIN 1.25 GM in NS 250 ML IV SCH (12:18)
--- NOTE | 2018-04-18 13:56 | ASMTCMCOM ---
CM Note CM Note Notes: Spoke with Hospitalist and ID regarding pt disposition. Contacted Noy in AOD at the [facility] in [place] at [phone]. Pt is a [place] and [place] drugs [place]. Noy took hospitalist's phone number for [place] hospitalist to consult with him on possible transfer. CM to follow. D/C plan: SNF v transfer to [place] v [facility] for duration of IV Abx course Date Signed: 04/18/2018 01:56 PM Electronically Signed By:Bekah Majano
--- NOTE | 2018-04-18 13:58 | HOSPPROG ---
Hospitalist Progress Note Assessment/Plan: 67-year-old IV drug user is admitted with left hip pain. Initial CT scan does show some iliopsoas swelling, no significant white count or fever and blood cultures are negative. MRI showed myositis and possibly small abscess in the iliopsoas. # Left Iliopsoas myositis/abscess with left hip pain. * MRI shows possibly small abscess. * ID is following * Cont IV Vancomycin and Cefepime * elevated CRP and pc noted # Right Ankle pain. Negative X-Ray. -CT right ankle with no e/o infection -unable to obtain MRI as previously required sedation. -appears to be improving # ongoing IV drug use. Patient typically injects into his upper extremities and not his lower extremities. #possible Syphilis: confirmation test needed # delirium: resolved # hypotension, resolved con inpatient The patient will need IV abx for 2 weeks and then transitioned 2 weeks of Abx orally. [facility] I will discuss with their team once CM arranges. Subjective: no cp or sob. no n/v Objective: Vital Signs Temp Pulse Resp BP Pulse Ox 36.6 C 76 18 115/67 95 04/18/18 12:00 04/18/18 12:00 04/18/18 12:00 04/18/18 12:00 04/18/18 12:00 Laboratory Results 04/18/18 08:54 04/18/18 08:54 04/17/18 04/18/18 04/19/18 05:59 05:59 05:59 Intake Total 1030 Output Total 1275 1370 950 Balance -1275 -1420 -950 - Physical Exam Constitutional: no apparent distress Eyes: PERRL, EOMI Ears, Nose, Mouth, Throat: moist mucous membranes, hearing normal Cardiovascular: regular rate and rhythym, No edema Respiratory: no respiratory distress, no rales or rhonchi Gastrointestinal: normoactive bowel sounds, soft, non-tender abdomen Skin: warm Neurologic: AAOx3 Psychiatric: interacting appropriately, not anxious, not encephalopathic Lymph, Heme, Immunologic: No petechiae ICD10 Worksheet Patient Problems: Problems Problem Status Onset HTN (hypertension) Acute IVDU (intravenous drug user) Acute Left hip pain Acute
--- NOTE | 2018-04-18 14:33 | PDDCSUM ---
Discharge Summary Discharge Summary: 67-year-old IV drug user is admitted with left hip pain. Initial CT scan does show some iliopsoas swelling, no significant white count or fever and blood cultures are negative. MRI showed myositis and possibly small abscess in the iliopsoas. He was started on Vancomycin. Symptoms continues and he eventually was started on Cefepime. He needs prolonged abx per below. Arrangements for transfer to the [place] have been made. Please see below for details per problem list. At the time of discharge, he is stable, VSS. DDX: # Left Iliopsoas myositis/abscess with left hip pain. * MRI shows possibly small abscess. * ID is following * Cont IV Vancomycin (started on admission) and Cefepime (started on 04/16). The patient will need IV abx for 2 weeks and then transitioned 2 weeks of Abx orally. * no surgical procedures or draining have been performed * cultures have been negative. He has not been bacteremic * elevated CRP and pc noted # Right Ankle pain. resolving. no e/o infection. no need for surgical management -Negative X-Ray. -CT right ankle with no e/o infection -unable to obtain MRI as previously required sedation. -appears to be improving # polysubstance abuse. ongoing IV drug use. #possible Syphilis: confirmation test is pending # delirium: resolved # hypotension, resolved Exam: see todays PN Meds: per med rec total time spent on discharge is 35 minutes
--- NOTE | 2018-04-18 16:36 | ASMTDCNOTE ---
Case Management Discharge Discharge Order Complete? Answers: Yes Patient to Obtain Answers: Other Notes: [facility] ALS Medications Transportation Arranged Answers: Other Notes: [facility] ACLS Transport will Pick (Date 04/18/2018 07:30 PM & Time) EMTALA Complete Answers: Yes Case Management Transport Answers: Yes Form Complete Faxed Final Orders Answers: Yes Notes: to the [facility] Agency/Facility Transfer Answers: Yes Notes: to the [facility] Report Printed & Faxed to Receiving Agency Family Notified Answers: Yes Notes: phone call placed to brother Discharge Comments Notes: Pt accepted by Dr. Alona Wolf of the [facility]. [facility] arranged transport via ambulance to the [facility]. supervisor sound technician at 19:30. Report called by RN to RN at [facility]. No further CM needs noted at this time. Date Signed: 04/18/2018 04:35 PM Electronically Signed By:Bekah Majano
--- NOTE | 2018-04-18 16:36 | ASDISCHSUM ---
Discharge Information Plan Status:Acute Transfer Medically Cleared to Leave:04/18/2018 Discharge Date:04/18/2018 CM D/C Disposition:[facility] ADT D/C Disposition:[facility] Projected Discharge Date:04/18/2018 Transportation at D/C:ALS/BLS Discharge Delay Reason: Follow-Up Date:04/18/2018 Discharge Slot: Final Diagnosis:Hip Myocitis Placement Information Patient Contact Information Contact Name:CARYNBRENNA Relationship: Address: Home Phone: City: [place] Phone: [facility]/Zip Code: Email: Financial Information Financial Class:HMO and PPO Plans Primary Plan Desc:[employer] Primary Plan Number:[id number] Secondary Plan Desc: Secondary Plan Number: Assessment Information BC CM Progress Note CM Note CM Note Notes: Pt presents to hospital w/L hip pain. He admits to current polysubstance abuse (Meth,Heroin,Speed). DC needs unclear, CM w/f. DC Plan: TBD Date Signed: 04/10/2018 02:35 PM Electronically Signed By:Leeanne Boyd RN [facility] CM Progress Note CM Note CM Note Notes: Chart reviewed. Will have repeat MRI tomorrow with sedation. CM to follow. Will need need resources prior to discharge. CM to follow for needs. Plan: TBD Date Signed: 04/12/2018 04:12 PM Electronically Signed By:Vicki Shipley RN [facility] CM Progress Note CM Note CM Note Notes: Spoke with patient's nurse, Shawn. Patient had visitors today and when they left patient respiratory status and BP became unstable. After consultation with Dr. Car, it was determined there was a high probability the patient's visitors put drugs in his IV line. Patient was given Narcan and respiratory status and BP stabilized. Patient is not allowed any visitors for the remainder of his stay here in the hospital. See nurse's notes dated 04-14-2018 by Shawn for a more detailed account. CM was going to give resources today but patient is sedated by whatever was placed in his IV line. CM to follow up tomorrow. Date Signed: 04/14/2018 03:28 PM Electronically Signed By:Lashaun Allen LCSW [facility] CM Progress Note CM Note CM Note Notes: Spoke with pt, he lives in a mobile home in [place]. He still needs to work with therapies to assess needs, pt motivated to start working with them. Pt still on IV abx, CM w/f for needs. Pt has Veterans ins, several snfs can accept his insurance if he qualifies for nursing home. DC Plan: TBD Date Signed: 04/17/2018 04:26 PM Electronically Signed By:Leeanne Boyd RN [facility] CM Progress Note CM Note CM Note Notes: Spoke with Hospitalist and ID regarding pt disposition. Contacted Noy in AOD at the [facility] in [place] at [phone]. Pt is a [place] and [place] IV drugs [place]. Noy took hospitalist's phone number for [place] hospitalist to consult with him on possible transfer. CM to follow. D/C plan: SNF v transfer to [facility] for duration of IV Abx course Date Signed: 04/18/2018 01:56 PM Electronically Signed By:Bekah Majano Case Management Discharge Plan Note Case Management Discharge Discharge Order Complete? Answers: Yes Patient to Obtain Answers: Other Notes: [place] [facility] ALS Medications Transportation Arranged Answers: Other Notes: [facility] ACLS Transport will Pick (Date 04/18/2018 07:30 PM & Time) DIEGO Complete Answers: Yes Case Management Transport Answers: Yes Form Complete Faxed Final Orders Answers: Yes Notes: to the [place] Agency/Facility Transfer Answers: Yes Notes: to the [place] Report Printed & Faxed to Receiving Agency Family Notified Answers: Yes Notes: phone call placed to brother Discharge Comments Notes: Pt accepted by Dr. Alona Wolf of the [place]. [place] arranged transport via [place] to the [place]. air traffic supervisor at 19:30. Report called by RN to RN at [place]. No further CM needs noted at this time. Date Signed: 04/18/2018 04:35 PM Electronically Signed By:eBkah Majano Intervention Information
[2018-04-18 19:19] VITALS: BP 141/83
== END 2018-04-18 20:07 | disposition short-term general hospital (02) | DRG 558 ==
LOC: F3E 07:55 → OBSVTOIN 18:06 → F3E 04-12 10:52
PROVIDERS: ADMIT Student in an Organized Health Care Education/Training Program; ATTEND Student in an Organized Health Care Education/Training Program
DX: M60.004 Infective myositis, unspecified left leg (principal); L02.416 Cutaneous abscess of left lower limb; B19.10 Unspecified viral hepatitis B without hepatic coma; B19.20 Unspecified viral hepatitis C without hepatic coma; A53.9 Syphilis, unspecified; I08.2 Rheumatic disorders of both aortic and tricuspid valves; E86.9 Volume depletion, unspecified; F11.10 Opioid abuse, uncomplicated; I95.9 Hypotension, unspecified; I10 Essential (primary) hypertension; F15.10 Other stimulant abuse, uncomplicated; Z72.0 Tobacco use; Z88.0 Allergy status to penicillin
CPT/HCPCS: 80305; 86704-90; 86705-90; 86708-90; 86709-90; 87517-90; 96374; 97116-GP; 97162-GP; A9585; G0472; J0692; J1170; J1650; J2060; J2270; J2310; J2405; J2543; J2704; J3370; J3411; Q9967

== ENCOUNTER 2018-12-22 15:44 | Emergency (ER) | payer OTHER ==
[2018-12-22] MEDS ORDERED: PROPARACAINE 0.5% 15 ML OPHT DROP OP ONE (16:11)
[2018-12-22] MEDS ORDERED: FLUORESCEIN SODIUM 1 MG STRIP OP ONE (16:11)
--- NOTE | 2018-12-22 16:24 | EDPHY ---
General Time Seen by Provider: 12/22/18 16:24 Narrative: CLINICAL IMPRESSION: Conjunctivitis, conjunctival abrasion ASSESSMENT/PLAN: Patient is a 68 year old male with a history of untreated HTN who presents to the ED with complaints of right eye pain and tearing since poking himself in the eye 2 days prior. Patient with uptake with fluorescein on right lateral conjunctiva consistent with conjunctival abrasion and conjunctivitis. Pressure normal at 12. There were no clinical findings to suggest significant corneal ulceration, globe injury, foreign body, HSV keratitis, iritis, acute angle- closure glaucoma, severe uveitis, acute loss of vision (from CRAO, retinal detachment or optic neuritis) or other ophthalmologic emergency. Patient had immediate relief with proparacaine, will continue erythromycin ointment, Tylenol and ibuprofen as needed for pain. Patient was noted to have elevated BP on arrival, he has been noncompliant with unknown BP med secondary to [facility]. He had no complaints of GARCIA, dizziness, no findings to suggest hypertensive emergency. Case management evaluated the patient, they will contact the [facility] to facilitate [facility]. Ophthalmology consult also provided, return precautions discussed. CHIEF COMPLAINT: Right Eye Pain and drainage HPI: Patient is a 68 year old male with a history of untreated hypertension who presents to the emergency department with right eye discomfort and tearing since he accidentally poked himself in the eye 2 days ago. Patient reports he was working on his car, he had some fine copper wiring that he pulled hard towards him accidentally hitting himself in the outer part of his right eye. He immediately experienced pain and tearing. Pain has persisted, difficulty to open eye secondary to pain. He is having copious reported tearing from the right eye, also noted to redness to the eye. Denies GARCIA, dizziness, vision loss , facial pain, fever, retro-orbital pain or purulent drainage. He denies any chemical exposure or left eye pain. He is UTD on his tetanus. He has not tried anything for the pain. Denies any other injury or complaint. ROS: Otherwise negative, please see HPI. PHYSICAL EXAM: General Appearance: Elderly, unkempt, not toxic appearing. Eyes: There is no periorbital erythema or edema. Visual croft = WNL. EOMI and without pain. PERRLA. Slit lamp with no eyelid edema, blepharitis, or cellulitis. Bilateral conjunctiva injected, right > left. No conjunctival hemorrhages, hyphema, or hypopyon. Conjunctival abrasion noted in the right inferior lateral portion of the right eye. No ulcers under fluorescein. Negative Sanju test. No cell and flare. No FB's with eyelid eversion. Funduscopic with no papilledema, retinal hemorrhages or cotton wool spots observed (w/out eye dilated). Eye pressure 12. Respiratory: There are no retractions, lungs are clear to auscultation. Cardiac: Regular rate and rhythm, no murmurs or gallops. Gastrointestinal: Abdomen is soft, nontender, bowel sounds normal, no masses/ hernia, no rigidity, guarding or focal peritoneal findings. Skin: Warm, dry, no rashes. Neuro: Alert and oriented x3, Cranial nerves 2-12 grossly intact. No focal deficit. Psych: Normal mood, normal affect. No agitation. MEDICAL DECISION MAKING: Patient was seen independently. Secondary supervising physician at time of evaluation was Dr. Méndez, he did not evaluate this patient. Diagnosis: Conjunctivitis, conjunctival abrasion. Summary: See Assessment and Plan for summary of ED visit Decision to obtain medical records or history from someone other than the patient: No Review / Summarize previous medical records: Yes Discussed patient with another provider: Yes, Dr. Méndez. Case management. Patient Progress: Stable, discharge. - History History Review: I reviewed the patient's medical records Smoking Status: Heavy smoker - Objective Vital Signs: Initial Vital Signs Temperature (C) 36.6 C 12/22/18 16:01 Heart Rate 74 12/22/18 16:01 Respiratory Rate 18 12/22/18 16:01 Blood Pressure 177/119 H 12/22/18 16:01 O2 Sat (%) 94 12/22/18 16:01 O2 Delivery Mode Room Air Allergies/Adverse Reactions: penicillin V potassium [From Pen-Vee K] Allergy (Verified 12/22/18 16:05) Sulfa (Sulfonamide Antibiotics) Allergy (Verified 12/22/18 16:05) Home Medications: Medication Instructions Recorded Prazosin HCl [Minipress 1mg (*)] 1 mg PO DAILY 04/10/18 traZODone [traZODONE 100MG (*)] 100 mg PO HS 04/10/18 Cefepime HCl [Maxipime] 2 gm IV Q12H vial 04/18/18 Cyclobenzaprine [Flexeril 10 MG 10 mg PO TID tab 04/18/18 (*)] Diphenoxylate HCl/Atrop Sulf 1 tab PO QID PRN tab 04/18/18 [Lomotil Tab (*)] Enoxaparin [Lovenox 40 MG (*)] 40 mg SC DAILY syr 04/18/18 Folic Acid [Folic Acid 1 MG (*)] 1 mg PO DAILY tab 04/18/18 HYDROmorphone HCL [Dilaudid] 0.4 mg IVP Q4HRS PRN inj 04/18/18 LORazepam [Ativan (*)] 1 mg PO Q4HRS PRN tab 04/18/18 Nicotine [Nicoderm Cq 21 mg (*)] 21 mg TD DAILY patch 04/18/18 Ondansetron HCl Pf [Zofran 4 mg 4 mg IVP Q4HRS PRN vial 04/18/18 Inj (*)] Ondansetron Odt [Zofran Odt 4 mg 4 mg PO Q4HRS PRN tab 04/18/18 (*)] Prazosin HCl [Minipress 1mg (*)] 1 mg PO DAILY cap 04/18/18 Thiamine HCl [Vitamin B-1] 100 mg PO DAILY tab 04/18/18 Vancomycin [Vancomycin (*)] 1.25 gm IV Q12H vial 04/18/18 chlordiazePOXIDE [Librium 25 mg 25 mg PO PRN PRN cap 04/18/18 (*)] clonIDINE [Catapres (*)] 0.1 mg PO BID tab 04/18/18 oxyCODONE IR [Oxycodone Ir (*)] 5 - 10 mg PO Q3HRS PRN tab 04/18/18 Medications Given: Discontinued Medications Erythromycin (Erythromycin 0.5%) 1 ida RTEYE ONCE ONE Stop: 12/22/18 16:57 Last Admin: 12/22/18 17:11 Dose: 1 ida Fluorescein Sodium (Bioglo) 1 mg OP EDNOW ONE Stop: 12/22/18 16:12 Last Admin: 12/22/18 16:14 Dose: 1 mg Ibuprofen (Motrin) 400 mg PO EDNOW ONE Stop: 12/22/18 17:02 Last Admin: 12/22/18 17:11 Dose: 400 mg Proparacaine HCl (Alcaine 0.5%) 1 drops OP EDNOW ONE Stop: 12/22/18 16:12 Last Admin: 12/22/18 16:13 Dose: 1 btl Departure - Departure Disposition: Home, Routine, Self-Care Clinical Impression: Conjunctivitis Qualifiers: Conjunctivitis type: acute Acute conjunctivitis type: unspecified Laterality: right Qualified Code(s): H10.31 - Unspecified acute conjunctivitis, right eye Conjunctival abrasion Qualifiers: Encounter type: initial encounter Laterality: right Qualified Code(s): S05.01XA - Injury of conjunctiva and corneal abrasion without foreign body, right eye, initial encounter Condition: Good Instructions: Conjunctivitis (ED) Additional Instructions: DISCHARGE INSTRUCTIONS FROM YOUR PROVIDER Thank you for visiting our emergency department today. Please keep in mind that discharge from the emergency department does not mean that there is nothing wrong - it simply means that we have not identified an emergency condition that requires further evaluation or treatment in the hospital. You should always plan to follow up with primary care for re-evaluation of your condition in the next 2-3 days. Please call Ophthalmology tomorrow morning to schedule an appointment for repeat examination. It is very important to keep that appointment. Not keeping the appointment could result in a severe eye infection or permanent loss of vision. If there is any problem scheduling the appointment, you must call back to this facility for assistance. Rest the eye. Avoid bright lights. Be sure to wear safety protective eyewear in the future to prevent similar injuries. Small abrasions may be treated with antibiotic drops or ointment alone. You were provided with [erythromycin] eye ointment--a 1/2 inch ribbon of ointment should be applied to the right eye three times per day for the next two days. Tylenol as directed as needed for pain. You received a 500 mg dose in the emergency department tonight. Do not exceed 4000 mg in 24 hours. Continue your regular medications as prescribed. Most corneal abrasions heal within 2-3 days with no effect on vision. If abrasion becomes infected and spreads to the deeper tissues of the cornea, a corneal ulcer can result. This is serious because it can cause corneal scarring. Corneal scars interfere with light passing through the cornea, and cause a loss of vision in the involved eye. SEEK MEDICAL CARE IF: You have continued pain, light sensitivity, sensation something is still in the eye, a scratchy feeling in one eye (or both), any kind of discharge develops from the involved eye after treatment or if the lids stick together in the morning, if you have the same symptoms in the morning as you did with the original abrasion days, weeks or months after the abrasion healed, visual disturbance, blurry vision, loss of vision, pain behind the eye, increased eye redness, redness or swelling around the eye, development of fever, chills, dizziness, weakness, fainting, vomiting, severe headache, skin rash, neck pain, neck stiffness, or for any other new, worsening or worrisome symptoms. People present with illnesses and injuries in different ways, and it is always possible that we have missed something. Again, thank you for choosing our emergency department. We hope that you feel better. Referrals: NONE *PRIMARY CARE P,. [Primary Care Provider] - As per Instructions ([facility], call tomorrow to schedule an appointment.) Gui David MD [Medical Doctor] - 1 day without fail
[2018-12-22] MEDS ORDERED: ERYTHROMYCIN 0.5% 1 GM OPHT.OINT RTEYE ONE (16:56)
[2018-12-22] MEDS ORDERED: IBUPROFEN 200 MG TAB PO ONE (17:01)
[2018-12-22 17:14] VITALS: BP 166/108
--- NOTE | 2018-12-23 10:27 | ASMTCMCOM ---
CM Note CM Note Notes: Follow up CM note: Patient presented to the ER yesterday evening with complaints of a right eye injury. See ER report for details. This CM met with patient to confirm his contact information and plan to [facility] with the [facility] in [facility]. Patient reported that he cannot recall when [facility] and does not remember the name of his PCP. Patient was in agreement with plan for this CM to contact him in the morning after I reach out to the [facility]. Chart reviewed for this visit as well as patient's inpatient visit on 04/10/18. I have contacted Eloisa Gutierrez at the [facility] in [place] and confirmed that patient's PCP is Dr. Claudette Quinteros. Patient was transferred to the [facility] (from this hospital) on April 18, 2018 and has not followed through with further visits [facility] the [facility]. Per Eloisa's request this CM faxed ER report form 12/[facility]/18 to the [facility] to be [facility] into medical records. Additionally, Eloisa confirms that she will communicate with Dr. Quinteros's home care physical therapist and attempt to contact patient for follow up. This CM has left a message on patient's regarding [facility] follow up an dhave provided CM contact CM available for further needs prn Date Signed: 12/23/2018 10:26 AM Electronically Signed By:Beatrice Monreal RN
== END 2018-12-22 17:15 | disposition home or self-care (01) ==
DX: S05.01XA Injury of conjunctiva and corneal abrasion without foreign body, right eye, initial encounter (principal); H10.31 Unspecified acute conjunctivitis, right eye; I10 Essential (primary) hypertension; F17.200 Nicotine dependence, unspecified, uncomplicated; W22.8XXA Striking against or struck by other objects, initial encounter; Y92.810 Car as the place of occurrence of the external cause